=== PATIENT | male | born 1945 | race Caucasian/White ===

== ENCOUNTER 2019-03-12 20:53 | Inpatient (IN) | payer MEDICARE ==
[~2019-03-12] VITALS: Ht 187.9 cm; Wt 70.6 kg
[2019-03-12] MEDS ORDERED: RT-ALBUTEROL/IPRATROPIUM 3 ML (DUONEB) VIAL INH ONE (21:15)
--- NOTE | 2019-03-12 21:15 | ED Dyspnea ---
General Chief Complaint: Respiratory Problems Stated Complaint: SOA,COUGH Source of Information: Patient History of Present Illness Date Seen by Provider: Mar 12, 2019 Time Seen by Provider: 20:57 Initial Comments 73-year-old male presenting with increasing shortness of breath and cough over the last week or 2. In the last couple of days he's had even more shortness of breath and difficulty laying flat. He reports that if his family pounds on his back he did eventually bring up some clear mucus and that would help with his breathing but today that has not been helping. He has had a lot of clear nasal drainage. He feels like he can't get anything up out of his chest. If he sitting straight up or leaning forward helps with his breathing. He is a smoker. He does have a history of hypertension but stopped taking his blood pressure medicine because he was on a very low-dose and felt that he didn't need it anymore. He follows with Dr. Valencia. He has been having some swelling in his feet and legs over the last couple of days. He felt like this was due to having his feet down and not moving around as much. He has had some chills but denies fever. Increased shortness of breath with laying down and with exertion. Allergies and Home Medications Allergies Coded Allergies: No Known Drug Allergies (Unverified , 03/12/19) Patient Home Medication List Home Medication List Reviewed: Yes Review of Systems Review of Systems Constitutional: chills; No diaphoresis, No dizziness, No fever; malaise, weakness (generalized) EENTM: nose congestion (clear nasal drainage); No ear pain, No epistaxis Respiratory: cough, dyspnea on exertion; No hemoptysis; orthopnea, phlegm (clear colored when he is able to get it coughed up), short of breath; No stridor; wheezing Cardiovascular: No chest pain; edema (bilateral feet), palpitations; No syncope Gastrointestinal: No nausea, No vomiting Genitourinary: no symptoms reported Musculoskeletal: back pain Skin: no symptoms reported Psychiatric/Neurological: Weakness (generalized) All Other Systems Reviewed Negative Unless Noted: Yes (Negative excepted noted.) Past Ynrzwhv-Iwtqug-Tfhsyf Hx Past Med/Social Hx: Reviewed Nursing Past Med/Soc Hx Patient Social History Recent Foreign Travel: No Contact w/Someone Who Travel: No Past Medical History Respiratory: Yes Chronic Bronchitis Cardiac: Yes Hypertension Neurological: No Genitourinary: No Gastrointestinal: No Musculoskeletal: No Endocrine: No HEENT: No Physical Exam Vital Signs Vital Signs - First Documented 03/12/19 21:00 Temp 36.3 Pulse 120 Resp 22 B/P (MAP) 168/90 (116) Pulse Ox 95 O2 Delivery Room Air Capillary Refill : Height, Weight, BMI Height: '" Weight: lbs. oz. kg; BMI Method: General Appearance: Moderate Distress (working hard to breath), Thin HEENT: PERRL/EOMI, Pharyngeal Erythema (with some edema from cough, no exudate) Neck: Full Range of Motion, Non Tender, Supple; No Carotid Bruit; JVD Respiratory: Chest Non Tender, Decreased Breath Sounds, Respiratory Distress Cardiovascular: Normal Peripheral Pulses, Tachycardia, Other (1+pitting edema in BLE to just past his ankles) Peripheral Pulses: 2+ Carotid (R), 2+ Carotid (L), 2+ Radial Pulses (R), 2+ Radial Pulses (L) Gastrointestinal: Normal Bowel Sounds, No Pulsatile Mass, Non Tender, Soft Extremity: Normal Capillary Refill, Non Tender, Pedal Edema (BLE 1+ just past his ankles) Neurologic/Psychiatric: Alert, Oriented x3, No Motor/Sensory Deficits, 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 Norm as Tested Skin: Warm/Dry, Pallor Lymphatic: No Adenopathy Progress/Results/Core Measures Results/Orders Lab Results Laboratory Tests Test 03/12/19 21:20 Range/Units White Blood Count 10.2 4.3-11.0 10^3/uL Red Blood Count 4.98 4.35-5.85 10^6/uL Hemoglobin 10.8 L 13.3-17.7 G/DL Hematocrit 36 L 40-54 % Mean Corpuscular Volume 71 L 80-99 FL Mean Corpuscular Hemoglobin 22 L 25-34 PG Mean Corpuscular Hemoglobin Concent 30 L 32-36 G/DL Red Cell Distribution Width 24.4 H 10.0-14.5 % Platelet Count 303 130-400 10^3/uL Mean Platelet Volume 8.7 7.4-10.4 FL Neutrophils (%) (Auto) 61 42-75 % Lymphocytes (%) (Auto) 24 12-44 % Monocytes (%) (Auto) 15 H 0-12 % Eosinophils (%) (Auto) 0 0-10 % Basophils (%) (Auto) 0 0-10 % Neutrophils # (Auto) 6.2 1.8-7.8 X 10^3 Lymphocytes # (Auto) 2.4 1.0-4.0 X 10^3 Monocytes # (Auto) 1.5 H 0.0-1.0 X 10^3 Eosinophils # (Auto) 0.0 0.0-0.3 10^3/uL Basophils # (Auto) 0.0 0.0-0.1 10^3/uL Sodium Level 125 *L 135-145 MMOL/L Potassium Level 4.3 3.6-5.0 MMOL/L Chloride Level 90 L 98-107 MMOL/L Carbon Dioxide Level 21 21-32 MMOL/L Anion Gap 14 5-14 MMOL/L Blood Urea Nitrogen 13 7-18 MG/DL Creatinine 1.02 0.60-1.30 MG/DL Estimat Glomerular Filtration Rate > 60 BUN/Creatinine Ratio 13 Glucose Level 127 H 70-105 MG/DL Calcium Level 9.1 8.5-10.1 MG/DL Corrected Calcium 8.9 8.5-10.1 MG/DL Magnesium Level 1.8 1.6-2.4 MG/DL Total Bilirubin 0.5 0.1-1.0 MG/DL Aspartate Amino Transf (AST/SGOT) 18 5-34 U/L Alanine Aminotransferase (ALT/SGPT) 12 0-55 U/L Alkaline Phosphatase 92 40-136 U/L Troponin I < 0.30 <0.30 NG/ML Pro-B-Type Natriuretic Peptide 6295.0 H <75.0 PG/ML Total Protein 7.1 6.4-8.2 GM/DL Albumin 4.2 3.2-4.5 GM/DL Micro Results Microbiology 03/12/19 Influenza Types A,B Antigen (RADHA) - Final, Complete My Orders Orders - GYPSY LOPEZ MD Cbc With Automated Diff (03/12/19 21:15) Comprehensive Metabolic Panel (03/12/19 21:15) Albuterol/Ipra Inhalation Soln (Duoneb I (03/12/19 21:15) Chest Pa/Lat (2 View) (03/12/19 21:15) Ekg Tracing (03/12/19 21:15) O2 (03/12/19 21:15) Ed Iv/Invasive Line Start (03/12/19 21:15) Sputum Culture (03/12/19 21:15) Monitor-Rhythm Ecg Trace Only (03/12/19 21:15) Svn Small Volume Nebulizer (03/12/19 21:15) Influenza A And B Antigens (03/12/19 21:15) Troponin I Fs (03/12/19 21:17) Probnp Fs (03/12/19 21:17) Magnesium (03/12/19 21:17) Furosemide Injection (Lasix Injection) (03/12/19 22:27) Nicotine Patch (Nicoderm Patch) (03/12/19 22:27) Medications Given in ED Current Medications Medications Dose Ordered Sig/Akira Route Start Time Stop Time Status Last Admin Dose Admin Albuterol/ Ipratropium 3 ml ONCE ONCE INH 03/12/19 21:15 03/12/19 21:18 DC 03/12/19 21:29 3 ML Vital Signs/I&O 03/12/19 21:00 Temp 36.3 Pulse 120 Resp 22 B/P (MAP) 168/90 (116) Pulse Ox 95 O2 Delivery Room Air Progress Progress Note #1: Progress Note Obtain basic labs as well as electrocardiogram and chest x-ray. Try a DuoNeb breathing treatment to see if that helps with his breathing since he is a chronic smoker Progress Note #2: Time: 22:08 Progress Note The electrocardiogram shows sinus tachycardia with PVCs and right bundle-branch block with left anterior fascicular block. There is no prior tracing for comparison. His chest x-ray shows pulmonary edema with bilateral pleural effusions and cardiomegaly. His chemistry shows hyponatremia and elevated BNP but normal troponin. His renal function is normal as well. Discussed with the patient about the results and advised admission for diuresis and cardiology evaluation. Progress Note #3: Time: 22:33 Progress Note Discussed with Dr. Waldrop about the patient for the hospitalist service since patient follows with Dr. Valencia. She did accept the patient but requested an ABG on the patient. She wanted him admitted to the ICU. She did request cardiology to be consult to deny developing a message on the voice mail for Dr. Moreno at [phone]. I gave the patient 40 mg of IV Lasix and he did say he improved with duoneb so use MAT protocol at [facility] as well. Initial ECG Impression Date: Mar 12, 2019 Initial ECG Impression Time: 21:11 Initial ECG Rate: 112 Initial ECG Rhythm: S.Tach Initial ECG Comparisson: No Previous ECG Available Comment Sinus tachycardia with PVCs. Heart rate is 112 bpm. He has a MI interval of 124 ms. There is a lot of artifact on the tracing. He has no prior tracing available for comparison. He has a right bundle-branch LOC and left anterior fascicular block. He has no acute ST elevation. QT interval 353 ms and a QTc interval 482 ms. Diagnostic Imaging Diagonstic Imaging: Xray Plain Films/CT/US/NM/MRI: chest Comments NAME: [facility] REC#: [id number] PT STATUS: REG ER : 1945 PHYSICIAN: GYPSY LOPEZ MD ADMIT DATE: 03/12/19/ER FS Draft Date of Exam:03/12/19 CHEST PA/LAT (2 VIEW) CHEST PA/LAT (2 VIEW) Indication: Shortness of breath Comparison: None available. Findings: Interlobular septal thickening is present in the mid and lower lung zones. Small bilateral pleural effusions. No pneumothorax. Cardiomegaly. Atherosclerotic aorta. Impression: 1. Imaging features suggest congestive heart failure with interstitial pulmonary edema and small bilateral pleural effusions. Dictated on workstation # [id number] Dict: 03/12/192137 Trans: 03/12/19 2143 AAKASH [id number] Interpreted by: JOE PIMENTEL MD Electronically signed by: Critical Care Note Critical Care Total Time (minutes) 45 Progress 45 minutes of critical care time was spent directly caring for the patient. This time excluding separately billable procedures. Time was spent in obtaining history from the patient and family, ordering tests and reviewing results, ordering interventions and reviewing response, discussion with consultants, reviewing results with the patient and family, documentation of the chart. Patient was at significant risk of decompensation and organ system failure from cardiac and pulmonary systems due to his acute heart failure and pulmonary edema, requiring my direct attention to care for the patient in order to prevent imminent decompensation, morbidity or mortality. Departure Communication (Admissions) Time/Spoke to Admitting Phy: 22:[address] Waldrop about hospitalist admission of the patient. She requested ICU admission as well as an ABG on the patient. She also wanted cardiology consult tonight so that they were aware of the patient. If cardiology wanted any additional treatment or testing then also initiate that tonight. Time/Spoke to Consulting Phy: 22:[address] Moreno about the consult. He did call back prior to the patient being transferred to [facility]. He requested that the patient have an echocardiogram ordered for the morning and order serial troponins overnight. Impression Primary Impression: Acute CHF (congestive heart failure) Qualified Codes: I50.9 - Heart failure, unspecified Additional Impressions: Shortness of breath Hyponatremia Disposition: ADMITTED INPATIENT Condition: Stable Admissions Decision to Admit Reason: Admit from ER (General) Decision to Admit/Date: Mar 12, 2019 Time/Decision to Admit Time: 22:33 Departure-Patient Inst. Referrals: ARNOL VALENCIA MD (PCP/Family) Primary Care Physician GYPSY LOPEZ MD Mar 12, 2019 21:15
[2019-03-12 21:32] LABS: HEMATOCRIT 36 % (40-54); HEMOGLOBIN 10.8 G/DL (13.3-17.7); MEAN CORPUSCULAR HEMOGLOBIN 22 PG (25-34); MEAN CORPUSCULAR VOLUME 71 FL (80-99); WHITE BLOOD COUNT 10.2 10^3/uL (4.3-11.0)
[2019-03-12 21:33] LABS: BASOPHILS % (AUTO) 0 % (0-10); EOSINOPHILS % (AUTO) 0 % (0-10); LYMPHOCYTES # (AUTO) 2.4 X 10^3 (1.0-4.0); LYMPHOCYTES % (AUTO) 24 % (12-44); MEAN CORPUSCULAR HGB CONC 30 G/DL (32-36); MEAN PLATELET VOLUME 8.7 FL (7.4-10.4); MONOCYTES # (AUTO) 1.5 X 10^3 (0.0-1.0); MONOCYTES % (AUTO) 15 % (0-12); NEUTROPHILS # (AUTO) 6.2 X 10^3 (1.8-7.8); NEUTROPHILS % (AUTO) 61 % (42-75); PLATELET COUNT 303 10^3/uL (130-400); RED CELL DISTRIBUTION WIDTH 24.4 % (10.0-14.5)
--- NOTE | 2019-03-12 21:43 | Diagnostic Imaging Report ---
CHEST PA/LAT (2 VIEW) Indication: Shortness of breath Comparison: None available. Findings: Interlobular septal thickening is present in the mid and lower lung zones. Small bilateral pleural effusions. No pneumothorax. Cardiomegaly. Atherosclerotic aorta. Impression: 1. Imaging features suggest congestive heart failure with interstitial pulmonary edema and small bilateral pleural effusions. Dictated by: Dictated on workstation # [id number]
[2019-03-12 22:06] LABS: ALANINE AMINOTRANSFERASE 12 U/L (0-55); ALKALINE PHOSPHATASE 92 U/L (40-136); BILIRUBIN,TOTAL 0.5 MG/DL (0.1-1.0); BUN/CREATININE RATIO 13; CALCIUM 9.1 MG/DL (8.5-10.1); CARBON DIOXIDE 21 MMOL/L (21-32); CHLORIDE 90 MMOL/L (98-107); CREATININE SERUM 1.02 MG/DL (0.60-1.30); GFR ESTIMATED > 60; GLUCOSE 127 MG/DL (70-105); POTASSIUM 4.3 MMOL/L (3.6-5.0); SODIUM 125 MMOL/L (135-145)
[2019-03-12 22:07] LABS: ALBUMIN 4.2 GM/DL (3.2-4.5); MAGNESIUM 1.8 MG/DL (1.6-2.4); TOTAL PROTEIN 7.1 GM/DL (6.4-8.2)
[2019-03-12] MEDS ORDERED: FUROSEMIDE 40 MG/4 ML INJ (LASIX) IVP STA (22:27)
[2019-03-12] MEDS ORDERED: NICOTINE 21 MG (NICODERM) PATCH TD STA (22:27)
[2019-03-12 22:51] LABS: ABG BASE EXCESS 1.4 MMOL/L (-2.5-2.5); ABG OXYGEN SATURATION 95 % (94-100); ABG PCO2 34 MMHG (35-45); ABG PH 7.47 (7.37-7.43); ABG PO2 70 MMHG (79-93); ABG TCO2 25.7 MMOL/L (21.0-31.0); ALLENS TEST YES-POS; INSPIRED O2 ROOM AIR; PATIENT TEMP 36.9; VENTILATOR NO
[2019-03-13] VITALS (20 sets, daily range): BP systolic 122–168; BP diastolic 74–96
[2019-03-13 01:25] LABS: BASOPHILS % (AUTO) 0 % (0-10); EOSINOPHILS % (AUTO) 0 % (0-10); HEMATOCRIT 36 % (40-54); HEMOGLOBIN 11.3 G/DL (13.3-17.7); LYMPHOCYTES # (AUTO) 2.2 X 10^3 (1.0-4.0); LYMPHOCYTES % (AUTO) 23 % (12-44); MEAN CORPUSCULAR HEMOGLOBIN 21 PG (25-34); MEAN CORPUSCULAR HGB CONC 31 G/DL (32-36); MEAN CORPUSCULAR VOLUME 69 FL (80-99); MEAN PLATELET VOLUME 8.6 FL (7.4-10.4); MONOCYTES # (AUTO) 1.8 X 10^3 (0.0-1.0); MONOCYTES % (AUTO) 19 % (0-12); NEUTROPHILS # (AUTO) 5.6 X 10^3 (1.8-7.8); NEUTROPHILS % (AUTO) 58 % (42-75); PLATELET COUNT 323 10^3/uL (130-400); RED CELL DISTRIBUTION WIDTH 24.6 % (10.0-14.5); WHITE BLOOD COUNT 9.6 10^3/uL (4.3-11.0)
[2019-03-13 01:51] LABS: ALBUMIN 4.2 GM/DL (3.2-4.5); BILIRUBIN,TOTAL 0.7 MG/DL (0.1-1.0); CALCIUM 9.3 MG/DL (8.5-10.1); CREATININE SERUM 1.2 MG/DL (0.60-1.30); MAGNESIUM 1.8 MG/DL (1.6-2.4); PHOSPHORUS 3.5 MG/DL (2.3-4.7); POTASSIUM 3.8 MMOL/L (3.6-5.0); TOTAL PROTEIN 7.7 GM/DL (6.4-8.2)
[2019-03-13] MEDS ORDERED: RT-ALBUTEROL/IPRATROPIUM 3 ML (DUONEB) VIAL INH PRN (02:45)
[2019-03-13] MEDS ORDERED: RT-ALBUTEROL/IPRATROPIUM 3 ML (DUONEB) VIAL INH SCH (03:00)
[2019-03-13 03:54] LABS: LYMPHOCYTES % (MANUAL) 22 %; MONOCYTES % (MANUAL) 15 %; NEUTROPHILS % (MANUAL) 63 %
[2019-03-13] MEDS: POTASSIUM CL 10MEQ/50ML IVPB 50 ML IV SCH (04:54)
[2019-03-13] MEDS: KCL 20 MEQ TAB (K-DUR) PO SCH ×3 (04:54→20:10)
[2019-03-13] MEDS: MAGNESIUM 1 GM/100 ML IVPB 100 ML IV SCH (04:54)
--- NOTE | 2019-03-13 05:39 | Pulmonary Consultation ---
History of Present Illness History of Present Illness Date Seen by Provider: Mar 13, 2019 Time Seen by Provider: 05:38 Date of Admission History of Present Illness 73yo with hx of extensive tobacco use presented to ED secondary to worsening SOB, bilateral LE edema, and cough over the last 2wks. SOB is worse with exertion and laying flat. No prior episodes like this. PT was dx with acute CHF and was given lasix then admitted to ICU. Allergies and Home Medications Allergies Coded Allergies: No Known Drug Allergies (Unverified , 03/12/19) Past Wdgrkyy-Ozmxow-Jvvikb Hx Past Med/Social Hx: Reviewed Nursing Past Med/Soc Hx Patient Social History Alcohol Use: Rarely Uses Recreational Drug Use: No Smoking Status: Current Everyday Smoker Type Used: Cigarettes 2nd Hand Smoke Exposure: No Recent Foreign Travel: No Contact w/Someone Who Travel: No Recent Infectious Disease Expo: No Recent Hopitalizations: No Physical Abuse: No Sexual Abuse: No Mistreated: No Past Medical History Surgeries: No Respiratory: Yes Chronic Bronchitis Cardiac: Yes Hypertension Neurological: No Genitourinary: No Gastrointestinal: No Musculoskeletal: No Endocrine: No HEENT: No Cancer: No Psychosocial: No Integumentary: No Blood Disorders: No Review of Systems Time Seen by Provider: 07:20 Constitutional: Chills; No: Fever, Sweats, Weakness, Malaise, Other Eyes: No: Pain, Vision change, Conjunctivae inflammation, Eyelid inflammation, Other, Redness ENT: Nose congestion; No: Ear pain, Ear discharge, Nose pain, Nose discharge, Mouth pain, Mouth swelling, Throat pain, Throat swelling, Other Respiratory: Cough, Shortness of breath, SOB with excertion, Wheezing, Sputum; No: Dry, Hemoptysis, Pleuritic Pain, Other Cardiovascular: Palpitations, Orthopnea, Paroxysmal Noc. Dyspnea, Edema, Lt Headedness; No: Chest Pain Sepsis Event Evaluation Height, Weight, BMI Height: '" Weight: lbs. oz. kg; 21.75 BMI Method: Exam Exam Vital Signs Date Time Temp Pulse Resp B/P (MAP) Pulse Ox O2 Delivery O2 Flow Rate FiO2 03/13/19 04:00 Room Air 03/13/19 04:00 104 19 132/77 (95) 95 Room Air 03/13/19 03:55 36.4 03/13/19 03:00 109 23 140/88 (105) 95 Room Air 03/13/19 02:30 105 94 21 03/13/19 02:15 112 27 136/85 (102) 95 Room Air 03/13/19 01:45 105 20 144/83 (103) 96 Room Air 03/13/19 01:15 102 21 135/84 (101) 96 Room Air 03/13/19 01:00 109 19 145/77 (99) 96 Room Air 03/13/19 00:45 111 12 145/91 (109) 95 Room Air 03/13/19 00:30 94 Room Air 03/13/19 00:21 120 03/13/19 00:21 36.6 112 18 147/78 (101) 94 Room Air 94.00 03/12/19 23:08 123 20 164/61 95 Room Air 03/12/19 21:00 36.3 120 22 168/90 (116) 95 Room Air I & O 03/13/19 07:00 Intake Total 50 ml Output Total 1850 ml Balance -1800 ml Height & Weight Height: '" Weight: lbs. oz. kg; 21.75 BMI Method: General Appearance: Anxious, Chronically ill, Mild Distress, Thin HEENT: PERRL/EOMI, Pharyngeal Erythema (with some edema from cough, no exudate) Neck: Full Range of Motion, Non Tender, Supple; No Carotid Bruit; JVD Respiratory: Chest Non Tender, Decreased Breath Sounds, Respiratory Distress Cardiovascular: Normal Peripheral Pulses, Tachycardia, Other (1+pitting edema in BLE to just past his ankles) Capillary Refill: Less Than 3 Seconds Peripheral Pulses: 2+ Carotid (R), 2+ Carotid (L), 2+ Radial Pulses (R), 2+ Radial Pulses (L) Extremity: Normal Capillary Refill, Non Tender, Pedal Edema (BLE 1+ just past his ankles) Neurologic/Psychiatric: Alert, Oriented x3, No Motor/Sensory Deficits, 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
[2019-03-13] MEDS ORDERED: ENOXAPARIN 40 MG/0.4 ML (LOVENOX) SYR ONE (06:04)
[2019-03-13] MEDS ORDERED: ENOXAPARIN 40 MG/0.4 ML (LOVENOX) SYR SC SCH ×2 (06:15→12:00)
[2019-03-13] MEDS: FUROSEMIDE 40 MG/4 ML INJ (LASIX) IV SCH ×2 (08:02→20:10)
--- NOTE | 2019-03-13 08:38 | Diagnostic Imaging Report ---
INDICATION: Congestive heart failure, hyponatremia. TECHNIQUE: Single view chest 3:30 AM. CORRELATION STUDY: 03/12/2019 FINDINGS: Heart size is stable. Component of mild vascular congestion. Calcification of the aortic arch. Small bilateral pleural effusions. Some areas of atelectasis about the lung bases. Lung snow, however, overall appear somewhat improved in aeration. IMPRESSION: 1. Findings of congestive heart failure overall perhaps slightly diminished. Bilateral pleural effusions persisting. Dictated by: Dictated on workstation # [id number]
[2019-03-13] MEDS ORDERED: ASPI325T32 PO (09:40)
[2019-03-13] MEDS ORDERED: NAPR220T66 PO (09:40)
[2019-03-13] MEDS: RT-ALBUTEROL/IPRATROPIUM 3 ML (DUONEB) VIAL INH SCH ×3 (09:49→18:49)
[2019-03-13] MEDS ORDERED: GOLYTELY POWDER 4000 ML BTL PO NR (11:48)
--- NOTE | 2019-03-13 11:54 | Consultation - Surgery ---
BRIAN COWAN,MED STUDENT 03/13/19 1154: History of Present Illness History of Present Illness Patient Consulted On(bi/time) 03/13/19 11:44 Date Seen by Provider: Mar 13, 2019 Time Seen by Provider: 11:30 History of Present Illness Surgery consult by Dr. Sharif for EGD/colonoscopy to investigate cause of patient's microcytic anemia Patient is a 73 y/o male that presented to the ED in [place] yesterday with worsening SOB and cough that started around . SOB and cough had worsened of the last week. He was initially SOB with exertion and that progressed to SOB at rest with it being worse when he laid flat on his back. His cough has been productive sometimes with clear phlegm. He also admits to clear nasal drainage that has come and gone since . Patient says that sitting straight and leaning forward helps his breathing. Patient admits to smoking for 1.5ppd for 56yrs. Patient says that Dr. Gama is his doctor but that he never really sees Dr. Gama be he is skeptical of doctors and hospitals. Susan nt says that he has HTN but does not take his lisinopril regularly. He says that he came into the hospital because of his SOB and swelling in his feet, legs and back. Allergies and Home Medications Allergies Coded Allergies: Dxyrdth-Ddk-Zvx Reductase Inhibitor (Verified Allergy, Severe, myopathy , 03/13/19) Home Medications Aspirin 325 Mg Tablet.dr, 325 MG PO 1200, (Reported) Naproxen Sodium 220 Mg Tablet, 440 MG PO BID, (Reported) Past Hkidriq-Pksbba-Gnessv Hx Patient Social History Alcohol Use: Rarely Uses Recreational Drug Use: No Smoking Status: Current Everyday Smoker (1.5ppd for 56yrs ) Type Used: Cigarettes 2nd Hand Smoke Exposure: No Recent Foreign Travel: No Contact w/Someone Who Travel: No Recent Infectious Disease Expo: No Recent Hopitalizations: No Surgeries History of Surgeries: Yes Surgeries: Eye Surgery (cataracts ), Tonsillectomy Respiratory History of Respiratory Disorde: Yes Respiratory Disorders: Chronic Bronchitis Cardiovascular History of Cardiac Disorders: Yes Cardiac Disorders: Hypertension Neurological History of Neurological Disord: No Genitourinary History of Genitourinary Disor: No Gastrointestinal History of Gastrointestinal Di: No Musculoskeletal History of Musculoskeletal Dis: No Endocrine History of Endocrine Disorders: No HEENT History of HEENT Disorders: No Cancer History of Cancer: No Psychosocial History of Psychiatric Problem: No Integumentary History of Skin or Integumenta: No Blood Transfusions History of Blood Disorders: No Family Medical History Significant Family History: No Pertinent Family Hx Review of Systems-General Constitutional: No chills, No diaphoresis, No dizziness, No fever; malaise, weakness EENTM: nose congestion; No nose pain, No throat pain, No throat swelling Respiratory: cough, dyspnea on exertion; No hemoptysis; phlegm, short of breath Cardiovascular: No chest pain; edema; No Hx of Intervention, No palpitations Gastrointestinal: No abdominal pain, No constipation, No diarrhea, No melena, No nausea, No vomiting Genitourinary: No decreased output, No discharge, No dysuria, No frequency, No incontinence Musculoskeletal: back pain Psychiatric/Neurological: Anxiety, Depressed Physical Exam-General Problems Physical Exam Vital Signs Vital Signs - First Documented 03/12/19 03/13/19 21:00 02:30 Temp 36.3 Pulse 120 Resp 22 B/P (MAP) 168/90 (116) Pulse Ox 95 O2 Delivery Room Air FiO2 21 Capillary Refill : Less Than 3 Seconds General Appearance: WD/WN, no apparent distress HEENT: PERRL/EOMI; No scleral icterus (R), No scleral icterus (L) Neck: non-tender, supple Respiratory: chest non-tender, no respiratory distress, no accessory muscle use, decreased breath sounds Cardiovascular: tachycardia, other (regular rhythm ) Peripheral Pulses: 2+ Dorsalis Pedis (R), 2+ Left Dors-Pedis (L), 2+ Radial Pulses (R), 2+ Radial Pulses (L) Gastrointestinal: non tender, soft, no organomegaly, no pulsatile mass Extremities: no calf tenderness, pedal edema (minimal ) Neurologic/Psychiatric: alert, normal mood/affect, oriented x 3 Skin: normal color, warm/dry Data Review Labs Laboratory Tests 03/12/19 21:20: White Blood Count 10.2, Red Blood Count 4.98, Hemoglobin 10.8L, Hematocrit 36L, Mean Corpuscular Volume 71L, Mean Corpuscular Hemoglobin 22L, Mean Corpuscular Hemoglobin Concent 30L, Red Cell Distribution Width 24.4H, Platelet Count 303, Mean Platelet Volume 8.7, Neutrophils (%) (Auto) 61, Lymphocytes (%) (Auto) 24, Monocytes (%) (Auto) 15H, Eosinophils (%) (Auto) 0, Basophils (%) (Auto) 0, Neutrophils # (Auto) 6.2, Lymphocytes # (Auto) 2.4, Monocytes # (Auto) 1.5H, Eosinophils # (Auto) 0.0, Basophils # (Auto) 0.0, Sodium Level 125*L, Potassium Level 4.3, Chloride Level 90L, Carbon Dioxide Level 21, Anion Gap 14, Blood Urea Nitrogen 13, Creatinine 1.02, Estimat Glomerular Filtration Rate > 60, BUN/Creatinine Ratio 13, Glucose Level 127H, Calcium Level 9.1, Corrected Calcium 8.9, Magnesium Level 1.8, Total Bilirubin 0.5, Aspartate Amino Transf (AST/SGOT) 18, Alanine Aminotransferase (ALT/SGPT) 12, Alkaline Phosphatase 92, Troponin I < 0.30, Pro-B-Type Natriuretic Peptide 6295.0H, Total Protein 7.1, Albumin 4.2 03/12/19 22:46: Blood Gas Puncture Site RT RAD, Blood Gas Patient Temperature 36.9, Arterial Blood pH 7.47H, Arterial Blood Partial Pressure CO2 34L, Arterial Blood Partial Pressure O2 70L, Arterial Blood HCO3 25, Arterial Blood Total CO2 25.7, Arterial Blood Oxygen Saturation 95, Arterial Blood Base Excess 1.4, Patrick Test YES-POS, Blood Gas Ventilator Setting NO, Blood Gas Inspired Oxygen ROOM AIR 03/13/19 01:10: White Blood Count 9.6, Red Blood Count 5.30, Hemoglobin 11.3L, Hematocrit 36L, Mean Corpuscular Volume 69L, Mean Corpuscular Hemoglobin 21L, Mean Corpuscular Hemoglobin Concent 31L, Red Cell Distribution Width 24.6H, Platelet Count 323, Mean Platelet Volume 8.6, Neutrophils (%) (Auto) 58, Lymphocytes (%) (Auto) 23, Monocytes (%) (Auto) 19H, Eosinophils (%) (Auto) 0, Basophils (%) (Auto) 0, Neutrophils # (Auto) 5.6, Lymphocytes # (Auto) 2.2, Monocytes # (Auto) 1.8H, Eosinophils # (Auto) 0.0, Basophils # (Auto) 0.0, Sodium Level 127L, Potassium Level 3.8, Chloride Level 91L, Carbon Dioxide Level 23, Anion Gap 13, Blood Urea Nitrogen 12, Creatinine 1.20, Estimat Glomerular Filtration Rate 59, BUN/Creatinine Ratio 10, Glucose Level 104, Calcium Level 9.3, Corrected Calcium 9.1, Magnesium Level 1.8, Total Bilirubin 0.7, Aspartate Amino Transf (AST/SGOT) 17, Alanine Aminotransferase (ALT/SGPT) 14, Alkaline Phosphatase 93, Troponin I 0.029H, Total Protein 7.7, Albumin 4.2, Neutrophils % (Manual) 63, Lymphocytes % (Manual) 22, Monocytes % (Manual) 15, Phosphorus Level 3.5 03/13/19 04:50: Troponin I 0.030H, B-Type Natriuretic Peptide 984.4H Microbiology 03/12/19 Influenza Types A,B Antigen (RADHA) - Final, Complete Assessment/Plan Assessment/Plan Assessment/Plan Microcytic anemia - hgb is improving but iron is still low New onset CHFAE - cardiology is following incentive spirometry EGD and colonoscopy planned for tomorrow. Make patient NPO at midnight and do bowel prep today. Clinical Quality Measures DVT/VTE Risk/Contraindication: Risk Factor Score Per Nursin RFS Level Per Nursing on Admit: 4+=Very High PIA JOE DO 03/13/192102: History of Present Illness History of Present Illness History of Present Illness Patient is a 73 year old male who had worsening shortness of breath. was found to have micocytic anemia. cardiology has requested egd/colonoscopy be done. Has never had egd/colonoscopy previously. Undergoing cardiac workup but since microcytic anemia wanted GI workup in cased needs to be anticoagulated. Patient breathing better today. Has not had bowel issues. Does take Naproxen for back pain on regular basis. Denies n/v fever sweats chills. Allergies and Home Medications Allergies Coded Allergies: Shbhwte-Dcq-Nsx Reductase Inhibitor (Verified Allergy, Severe, myopathy , 03/13/19) Home Medications Aspirin 325 Mg Tablet.dr, 325 MG PO 1200, (Reported) Naproxen Sodium 220 Mg Tablet, 440 MG PO BID, (Reported) Patient Home Medication List Home Medication List Reviewed: Yes Past Rpsudap-Jhrbjo-Cglxya Hx Patient Social History Smoking Status: Current Everyday Smoker (1.5ppd for 56yrs ) Surgeries History of Surgeries: Yes Surgeries: Eye Surgery (cataracts ), Tonsillectomy Cardiovascular Cardiac Disorders: Hypertension Reviewed Nursing Assessment Reviewed/Agree w Nursing PMH: Yes Family Medical History Significant Family History: No Pertinent Family Hx Review of Systems-General Constitutional: No chills, No diaphoresis, No dizziness, No fever; malaise, weakness EENTM: nose congestion; No nose pain, No throat pain, No throat swelling Respiratory: cough, dyspnea on exertion; No hemoptysis; phlegm, short of breath Cardiovascular: edema; No Hx of Intervention, No palpitations Gastrointestinal: No abdominal pain, No constipation, No diarrhea, No melena, No nausea, No vomiting Genitourinary: No decreased output, No discharge, No dysuria, No frequency, No incontinence Musculoskeletal: back pain Skin: no symptoms reported; No change in color, No change in hair/nails Psychiatric/Neurological: Anxiety, Depressed Physical Exam-General Problems Physical Exam General Appearance: WD/WN, no apparent distress HEENT: PERRL/EOMI; No scleral icterus (R), No scleral icterus (L) Neck: non-tender, supple, normal inspection Respiratory: chest non-tender, no respiratory distress, no accessory muscle use Cardiovascular: tachycardia, other (regular rhythm ) Gastrointestinal: non tender, soft, no organomegaly, no pulsatile mass Rectal: deferred Back: normal inspection, other (low back chronic pain tenderness) Extremities: no calf tenderness, pedal edema (minimal ) Neurologic/Psychiatric: alert, normal mood/affect, oriented x 3 Skin: normal color, warm/dry Lymphatic: no adenopathy Assessment/Plan Assessment/Plan Assessment/Plan microcytic anemia hgb up CHFAE asked to do EGD/Colonoscopy to rule out GI malignancy discussed risks and benefits of EGD/Colonoscopy and patient/family understand and wish for him to proceed. patient to do prep today clear liquids npo after midnight plan on procedures tomorrow. Supervisory-Addendum Brief Verification & Attestation Participated in pt care: history, MDM, physical Personally performed: exam, history, MDM, supervision of care Care discussed with: Medical Student Procedures: n/a Results interpretation: Verified all documentation Verification and Attestation of Medical Student E/M Service A medical student performed and documented this service in my presence. I reviewed and verified all information documented by the medical student and made modifications to such information, when appropriate. I personally performed the physical exam and medical decision making. Pia Joe, Mar 13, 2019,21:06 BRIAN COWAN,MED STUDENT Mar 13, 2019 11:54 PIA JOE DO Mar 13, 2019 21:03
[2019-03-13] MEDS ORDERED: ONDANSETRON 4 MG/2 ML (SDV) Z0FRAN IV PRN (12:00)
[2019-03-13] MEDS ORDERED: POLYETHYLENE GLYCOL 17 GM (MIRALAX) PACK PO PRN (12:00)
[2019-03-13] MEDS ORDERED: BISACODYL 10 MG SUPP (DULCOLAX) PR PRN (12:00)
[2019-03-13] MEDS ORDERED: ANTACID SUSP 30 ML UDC (MYLANTA) PO PRN (12:00)
[2019-03-13] MEDS ORDERED: MELATONIN 3 MG TABLET PO PRN (12:00)
[2019-03-13] MEDS ORDERED: ONDANSETRON 4 MG (ZOFRAN) ORAL DISSOLVE TAB PO PRN (12:00)
[2019-03-13] MEDS: ACETAMINOPHEN 325 MG TABLET PO PRN ×2 (12:19→20:10)
--- NOTE | 2019-03-13 14:42 | History & Physical-Hospitalist ---
History of Present Illness HPI/Chief Complaint Ambrosio Templeton is a 73-year-old male with past medical history of hypertension, hyperlipidemia, who presented with shortness of breath. He reports that the shortness of breath has been going on for some time. He reports having worsening shortness of breath with laying flat. He reports swelling in his lower extremities. He denies any fevers or chills. He denies any chest pain or palpitations. He denies abdominal pain, nausea, vomiting, or diarrhea. He has a current pack-a-day smoker. He is not currently being followed by a physician. He does not take any prescribed medications regularly. He has been taking Aleve 1000 mg daily. He denies any hematochezia or melena. Date Seen 03/13/19 Time Seen by a Provider: 09:10 Attending Physician An Waldrop John M MD Referring Physician Date of Admission Mar 12, 2019 at 22:33 Home Medications & Allergies Home Medications Reviewed patient Home Medication Reconciliation performed by pharmacy medication reconciliations donor center technician and/or nursing. Patients Allergies have been reviewed. Allergies Allergies Coded Allergies Xbougxl-Mon-Hkf Reductase Inhibitor (Verified Allergy, Severe, myopathy , 03/13/19) Past Vyxqihx-Zmqizc-Yhrhkx Hx Past Med/Social Hx: Reviewed Nursing Past Med/Soc Hx Patient Social History Alcohol Use: Rarely Uses Recreational Drug Use: No Smoking Status: Current Everyday Smoker (1.5ppd for 56yrs ) Type Used: Cigarettes 2nd Hand Smoke Exposure: No Recent Foreign Travel: No Contact w/other who traveled: No Recent Hopitalizations: No Recent Infectious Disease Expo: No Past Medical History Surgeries: Eye Surgery (cataracts ), Tonsillectomy Cardiac: Hypertension History of Blood Disorders: No Family History No Pertinent Family Hx Review of Systems Constitutional: no symptoms reported EENTM: no symptoms reported Respiratory: orthopnea, short of breath Cardiovascular: no symptoms reported Gastrointestinal: no symptoms reported Genitourinary: no symptoms reported Musculoskeletal: no symptoms reported Skin: no symptoms reported Psychiatric/Neurological: No Symptoms Reported Physical Exam Physical Exam Vital Signs Vital Signs - First Documented 03/12/19 03/13/19 21:00 02:30 Temp 36.3 Pulse 120 Resp 22 B/P (MAP) 168/90 (116) Pulse Ox 95 O2 Delivery Room Air FiO2 21 Capillary Refill : Less Than 3 Seconds Height, Weight, BMI Height: '" Weight: lbs. oz. kg; 21.75 BMI Method: General Appearance: No Apparent Distress, WD/WN HEENT: PERRL/EOMI, Pharynx Normal Neck: Normal Inspection, Supple Respiratory: Lungs Clear, Normal Breath Sounds, No Respiratory Distress Cardiovascular: Regular Rate, Rhythm, No Edema, No Murmur Gastrointestinal: Normal Bowel Sounds, Non Tender, Soft Extremity: Normal Inspection, Non Tender, Pedal Edema Neurologic/Psychiatric: Alert, Oriented x3, No Motor/Sensory Deficits, Normal Mood/Affect Skin: Normal Color, Warm/Dry Results Results/Procedures Labs Laboratory Tests 03/12/19 21:20 03/13/19 01:10 Patient resulted labs reviewed. Imaging: Reviewed Imaging Report Assessment/Plan Admission Diagnosis Acute congestive heart failure, unspecified type Admission Status: Inpatient Order (span 2 midnights) Reason for Inpatient Admission: New onset heart failure requiring further evaluation Assessment and Plan Acute congestive heart failure, unspecified type NSTEMI Symptoms consistent with heart failure BNP elevated greater than 6000 on arrival Chest x-ray consistent with pulmonary edema and small bilateral pleural ef fusions Troponin mildly elevated upon arrival Cardiology consulted, assistance appreciated Started on IV Lasix, continue Trend troponin levels Monitor I/O Echocardiogram ordered Planning for ischemic evaluation following endoscopies Hyponatremia Clinically euvolemic to hypervolemic Secondary to heart failure versus SIADH Sodium 125 on arrival, repeat 127 Continue Lasix and assess response Obtain urine studies Possible COPD Nicotine dependence, uncomplicated, cigarettes Continue steroids MAT protocol Pulmonology consulted, appreciate assistance Iron deficiency anemia Mild anemia upon arrival MCV 70 Iron studies indicative of iron deficiency No previous colonoscopies Chronic NSAID use Consult general surgery, appreciate his assistance Planning for EGD/colonoscopy tomorrow, prep today DVT prophylaxis: Lovenox Diagnosis/Problems Diagnosis/Problems (1) Acute CHF (congestive heart failure) Status: Acute Qualifiers: Heart failure type: unspecified Qualified Codes: I50.9 - Heart failure, unspecified (2) NSTEMI (non-ST elevation myocardial infarction) Status: Acute (3) Hyponatremia Status: Acute (4) Iron deficiency anemia Status: Chronic Qualifiers: Iron deficiency anemia type: unspecified iron deficiency Qualified Codes: D50.9 - Iron deficiency anemia, unspecified (5) Nicotine dependence, cigarettes, uncomplicated Status: Chronic Clinical Quality Measures DVT/VTE Risk/Contraindication: Risk Factor Score Per Nursin RFS Level Per Nursing on Admit: 4+=Very High SAMANTHA TRISTAN MD Mar 13, 2019 14:42
--- NOTE | 2019-03-13 17:06 | Consultation-Cardiology ---
HPI-Cardiology Cardiology Consultation: Date of Consultation 03/13/19 Date of Admission Attending Physician An Waldrop DO Admitting Physician Davidson Gama MD Consulting Physician Carlitos MORENO MD HPI: Time Seen by a Provider: 08:30 Chief Complaint: Shortness of breath This is a 73-year-old gentleman who does not follow-up with any physicians. He has history of hypertension and hyperlipidemia. He also has active smoking history. He presents with worsening shortness of breath for the last few weeks. Orthopnea. Lower extremity swelling. Patient denies any significant chest pain, palpitation, syncope or near syncope. He denies any other complaints. Denies any significant family history. He denies any active bleeding from anywhere. He is on daily NSAIDs. His family is [place] origin and there is no history of thalassemia in the family. Review of Systems-Cardiology Review of Systems Constitutional: As described under HPI; No As described under HPI, No no symptoms reported, No chills, No fever, No lightheadedness Eyes: No As described under HPI, No no symptoms reported, No blindness, No blurred vision, No contact lenses, No drainage, No decreased acuity, No foreign body sensation, No pain, No vision change Ears/Nose/Throat: No As described under HPI, No no symptoms reported, No chronic hearing loss, No ear discharge, No ear pain, No nasal drainage, No ulcerations Respiratory: No no symptoms reported; As described under HPI; No As described under HPI, No cough; orthopnea; No shortness of breath, No SOB with excertion Cardiovascular: No no symptoms reported; As described under HPI; No As described under HPI, No chest pain, No edema, No irregular heart rate, No lightheadedness, No palpitations Gastrointestinal: No no symptoms reported, No As described under HPI, No abdomen distended, No abdominal pain, No blood streaked bowels, No constipation, No diarrhea, No nausea, No vomiting, No stool coloration changes Genitourinary: No As described under HPI, No burning, No dysuria, No discharge, No frequency, No flank pain, No hematuria, No urgency Skin: No rash, No skin related problems, No ulcerations Psychiatric/Neurological: No anxiety, No depression, No seizure, No focal weakness, No syncope Hematologic: No bleeding abnormalities All Other Systems Reviewed Negative Unless Noted: Yes (Negative excepted noted.) UMU-[id number]-[id number] Hx Patient Social History Alcohol Use: Rarely Uses Recreational Drug Use: No Smoking Status: Current Everyday Smoker (1.5ppd for 56yrs ) Type Used: Cigarettes 2nd Hand Smoke Exposure: No Recent Foreign Travel: No Recent Infectious Disease Expo: No Past Medical History PMH As described under Assessment. Allergies and Home Medications Allergies Coded Allergies: Zzeorbd-Lxa-Isu Reductase Inhibitor (Verified Allergy, Severe, myopathy , 03/13/19) Home Medications Aspirin 325 Mg Tablet.dr, 325 MG PO 1200, (Reported) Naproxen Sodium 220 Mg Tablet, 440 MG PO BID, (Reported) Patient Home Medication List Home Medication List Reviewed: Yes Physical Exam-Cardiology Physical Exam Vital Signs/I&O 03/13/19 03/13/19 03/13/19 03/13/19 06:00 06:45 07:00 08:00 Temp 37.0 Pulse 103 108 109 Resp 12 16 B/P (MAP) 130/84 (99) 137/80 (99) Pulse Ox 94 95 O2 Delivery Room Air Room Air 03/13/19 03/13/19 03/13/19 03/13/19 08:00 08:00 08:15 09:00 Temp 36.3 Pulse 112 120 112 Resp 19 16 B/P (MAP) 139/86 (103) 132/96 (108) Pulse Ox 96 94 95 O2 Delivery Room Air Room Air Room Air FiO2 21 03/13/19 03/13/19 03/13/19 03/13/19 09:49 10:00 12:00 12:00 Pulse 114 112 Resp 23 24 B/P (MAP) 164/94 (117) 126/93 (104) Pulse Ox 95 96 92 O2 Delivery Room Air Room Air Room Air Room Air 03/13/19 03/13/19 03/13/19 03/13/19 12:00 12:41 13:45 16:00 Temp 37.0 36.6 Pulse 110 Pulse Ox 95 O2 Delivery Room Air 03/13/19 16:00 Pulse 104 Resp 19 B/P (MAP) 129/82 (98) Pulse Ox 93 O2 Delivery Room Air Capillary Refill : Less Than 3 Seconds Constitutional: appears stated age, AAO x 3; No apparent distress; well- developed, well-nourished HEENT: PERRL; No discharge; hearing is well preserved, oral hygience is good; No ulceration, No xanthelasmas are seen Neck: No carotid bruit; carotid pulses are 2 + bilaterally Respiratory: accessory muscle use, chest is bilaterally symmetric, other (course breath sounds bilaterally) Cardiovascular: regular rate-rhythm, tachycardia, S1 and S2 Gastrointestinal: soft, audible bowel sounds; No spleenomegaly Rectal: deferred Extremities: normal range of motion, non-tender, normal inspection, pedal edema; No clubbing, No cyanosis, No significant edema Neurologic/Psychiatric: no motor/sensory deficits, alert, normal mood/affect, oriented x 3, power is 5/5 both on sides Skin: pallor; No rash, No ulcerations Data Review Labs Laboratory Tests 03/12/19 21:20: White Blood Count 10.2, Red Blood Count 4.98, Hemoglobin 10.8L, Hematocrit 36L, Mean Corpuscular Volume 71L, Mean Corpuscular Hemoglobin 22L, Mean Corpuscular Hemoglobin Concent 30L, Red Cell Distribution Width 24.4H, Platelet Count 303, Mean Platelet Volume 8.7, Neutrophils (%) (Auto) 61, Lymphocytes (%) (Auto) 24, Monocytes (%) (Auto) 15H, Eosinophils (%) (Auto) 0, Basophils (%) (Auto) 0, Neutrophils # (Auto) 6.2, Lymphocytes # (Auto) 2.4, Monocytes # (Auto) 1.5H, Eosinophils # (Auto) 0.0, Basophils # (Auto) 0.0, Sodium Level 125*L, Potassium Level 4.3, Chloride Level 90L, Carbon Dioxide Level 21, Anion Gap 14, Blood Urea Nitrogen 13, Creatinine 1.02, Estimat Glomerular Filtration Rate > 60, BUN/Creatinine Ratio 13, Glucose Level 127H, Calcium Level 9.1, Corrected Calcium 8.9, Magnesium Level 1.8, Total Bilirubin 0.5, Aspartate Amino Transf (AST/SGOT) 18, Alanine Aminotransferase (ALT/SGPT) 12, Alkaline Phosphatase 92, Troponin I < 0.30, Pro-B-Type Natriuretic Peptide 6295.0H, Total Protein 7.1, Albumin 4.2 03/12/19 22:46: Blood Gas Puncture Site RT RAD, Blood Gas Patient Temperature 36.9, Arterial Blood pH 7.47H, Arterial Blood Partial Pressure CO2 34L, Arterial Blood Partial Pressure O2 70L, Arterial Blood HCO3 25, Arterial Blood Total CO2 25.7, Arterial Blood Oxygen Saturation 95, Arterial Blood Base Excess 1.4, Patrick Test YES-POS, Blood Gas Ventilator Setting NO, Blood Gas Inspired Oxygen ROOM AIR 03/13/19 01:10: White Blood Count 9.6, Red Blood Count 5.30, Hemoglobin 11.3L, Hematocrit 36L, Mean Corpuscular Volume 69L, Mean Corpuscular Hemoglobin 21L, Mean Corpuscular Hemoglobin Concent 31L, Red Cell Distribution Width 24.6H, Platelet Count 323, Mean Platelet Volume 8.6, Neutrophils (%) (Auto) 58, Lymphocytes (%) (Auto) 23, Monocytes (%) (Auto) 19H, Eosinophils (%) (Auto) 0, Basophils (%) (Auto) 0, Neutrophils # (Auto) 5.6, Lymphocytes # (Auto) 2.2, Monocytes # (Auto) 1.8H, Eosinophils # (Auto) 0.0, Basophils # (Auto) 0.0, Sodium Level 127L, Potassium Level 3.8, Chloride Level 91L, Carbon Dioxide Level 23, Anion Gap 13, Blood Urea Nitrogen 12, Creatinine 1.20, Estimat Glomerular Filtration Rate 59, BUN/Creatinine Ratio 10, Glucose Level 104, Calcium Level 9.3, Corrected Calcium 9.1, Magnesium Level 1.8, Total Bilirubin 0.7, Aspartate Amino Transf (AST/SGOT) 17, Alanine Aminotransferase (ALT/SGPT) 14, Alkaline Phosphatase 93, Troponin I 0.029H, Total Protein 7.7, Albumin 4.2, Neutrophils % (Manual) 63, Lymphocytes % (Manual) 22, Monocytes % (Manual) 15, Phosphorus Level 3.5 03/13/19 04:50: Troponin I 0.030H, Iron Level 19L, Total Iron Binding Capacity 335, Unsaturated Iron Binding Capacity 316, Transferrin % Saturation 6L, B-Type Natriuretic Peptide 984.4H 03/13/19 14:50: Sodium Level 131L, Troponin I 0.028, Triglycerides Level 57, Cholesterol Level 118, LDL Cholesterol Direct 81, VLDL Cholesterol 11, HDL Cholesterol 35L Microbiology 03/12/19 Influenza Types A,B Antigen (RADHA) - Final, Complete ECG Impression ECG Initial ECG Rhythm: S.Tach A/P-Cardiology Assessment/Admission Diagnosis Acute respiratory failure, Acute congestive heart failure, COPD exacerbation, Severe hyponatremia, Microcytic anemia, Positive cardiac enzymes, Sinus tachycardia Plan Acute respiratory failure, likely multifactorial. COPD exacerbation, anemia, acute congestive heart failure. Acute congestive heart failure, check echocardiogram. 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 IV Lasix. COPD exacerbation, defer to the primary team. Severe hyponatremia, could be secondary to congestive heart failu re/cardiomyopathy. Severe hyponatremia in the setting of her cardiomyopathy is a poor prognostic sign. The patient was not on diuretics. Other etiologies of hyponatremia need to be looked into. Microcytic anemia, iron deficiency anemia and GI workup is recommended. Patient has significant smoking history, with microcytic anemia in this age group I'm concerned about a malignancy. I discussed with the primary team. Positive cardiac enzymes, working diagnosis is non-STEMI. However cardiac catheterization is not recommended in the setting of microcytic anemia unless it's an emergency. I will wait for the anemia/GI workup, before coronary angiography is done. However we will set up nuclear stress testing in the morning. Sinus tachycardia, likely due to significant systemic illness. Ex Significant discussion with the family and patient. Counseling took over 30 minutes. Complicated medical and cardiology issues as above. Thank you for your consultation. Please call me if you have any questions. Mark Moreno MD, FACP, FACC, FSCAI, FHRS, CCDS Interventional Cardiology Cardiac Electrophysiology Vascular Medicine and Endovascular Interventions Clinical Quality Measures DVT/VTE Risk/Contraindication: Risk Factor Score Per Nursin RFS Level Per Nursing on Admit: 4+=Very High Carlitos MORENO MD Mar 13, 2019 17:06
[2019-03-13] MEDS ORDERED: REGADENOSON 0.4 MG/5 ML SYR (LEXISCAN) IV ONE (17:15)
[2019-03-13 18:00] LABS: BILIRUBIN,URINE NEGATIVE (NEGATIVE); CLARITY,URINE CLEAR; COLOR,URINE YELLOW; GLUCOSE, URINE (UA) NEGATIVE (NEGATIVE); KETONES,URINE NEGATIVE (NEGATIVE); LEUKOCYTE ESTERASE ,URINE NEGATIVE (NEGATIVE); NITRITE,URINE NEGATIVE (NEGATIVE); PH,URINE 6.5 (5-9); PROTEIN,URINE TRACE (NEGATIVE)
[2019-03-13 18:06] LABS: BACTERIA,URINE NEGATIVE /HPF; SQUAMOUS EPITHELIAL CELL,UR 0-2 /HPF
[2019-03-13] MEDS: DOCUSATE SODIUM 100 MG (COLACE) CAP PO SCH (20:11)
[2019-03-13] MEDS: SENNOSIDES 8.6 MG (SENOKOT) TAB PO SCH (20:11)
[2019-03-13] MEDS: NICOTINE 21 MG (NICODERM) PATCH TD SCH (20:11)
[2019-03-14] VITALS (14 sets, daily range): BP systolic 90–143; BP diastolic 55–104
[2019-03-14] MEDS: RT-ALBUTEROL/IPRATROPIUM 3 ML (DUONEB) VIAL INH SCH ×6 (01:59→21:49)
[2019-03-14 03:57] LABS: BASOPHILS % (AUTO) 0 % (0-10); EOSINOPHILS % (AUTO) 0 % (0-10); HEMATOCRIT 32 % (40-54); HEMOGLOBIN 10.3 G/DL (13.3-17.7); LYMPHOCYTES # (AUTO) 1.4 X 10^3 (1.0-4.0); LYMPHOCYTES % (AUTO) 20 % (12-44); MEAN CORPUSCULAR HEMOGLOBIN 22 PG (25-34); MEAN CORPUSCULAR HGB CONC 32 G/DL (32-36); MEAN CORPUSCULAR VOLUME 68 FL (80-99); MEAN PLATELET VOLUME 8.5 FL (7.4-10.4); MONOCYTES # (AUTO) 2.3 X 10^3 (0.0-1.0); MONOCYTES % (AUTO) 32 % (0-12); NEUTROPHILS # (AUTO) 3.4 X 10^3 (1.8-7.8); NEUTROPHILS % (AUTO) 49 % (42-75); PLATELET COUNT 272 10^3/uL (130-400); RED CELL DISTRIBUTION WIDTH 25.2 % (10.0-14.5); WHITE BLOOD COUNT 7.1 10^3/uL (4.3-11.0)
[2019-03-14 04:27] LABS: BUN/CREATININE RATIO 11; CALCIUM 8.8 MG/DL (8.5-10.1); CARBON DIOXIDE 24 MMOL/L (21-32); CHLORIDE 95 MMOL/L (98-107); CREATININE SERUM 1.07 MG/DL (0.60-1.30); GFR ESTIMATED > 60; GLUCOSE 89 MG/DL (70-105); MAGNESIUM 1.7 MG/DL (1.6-2.4); PHOSPHORUS 3.3 MG/DL (2.3-4.7); POTASSIUM 3.6 MMOL/L (3.6-5.0); SODIUM 133 MMOL/L (135-145)
[2019-03-14] MEDS ORDERED: NS IV 1000 ML 1,000 ML IV SCH (05:15)
[2019-03-14] MEDS ORDERED: NS IV 1000 ML 1,000 ML ONE ×2 (05:39→15:50)
[2019-03-14] MEDS: POTASSIUM CL 10MEQ/50ML IVPB 50 ML IV SCH ×5 (05:45→09:43)
[2019-03-14] MEDS: MAGNESIUM 1 GM/100 ML IVPB 100 ML IV SCH ×3 (05:45→06:50)
[2019-03-14] MEDS: KCL 20 MEQ TAB (K-DUR) PO SCH ×3 (06:03→21:23)
--- NOTE | 2019-03-14 06:39 | Pulmonary Progress Note ---
Subjective Time Seen by a Provider: 06:36 Subjective/Events-last exam PT appears to be doing better. No productive cough. Family at bedside Sepsis Event Evaluation Height, Weight, BMI Height: '" Weight: lbs. oz. kg; 21.75 BMI Method: Exam Exam Vital Signs Date Time Temp Pulse Resp B/P (MAP) Pulse Ox O2 Delivery O2 Flow Rate FiO2 03/14/19 03:47 36.5 100 16 117/73 (88) 92 Room Air 03/14/19 03:47 Room Air 03/14/19 01:00 106 03/13/19 23:57 36.7 108 20 122/74 (90) 96 Room Air 03/13/19 23:13 Room Air 03/13/19 20:00 Room Air 03/13/19 20:00 36.8 114 16 138/78 (98) 97 Room Air 03/13/19 19:00 107 03/13/19 18:50 94 Room Air 03/13/19 17:00 101 14 126/79 (95) 94 Room Air 03/13/19 16:00 104 19 129/82 (98) 93 Room Air 03/13/19 16:00 Room Air 03/13/19 16:00 36.6 03/13/19 13:45 95 Room Air 03/13/19 12:41 110 03/13/19 12:00 37.0 03/13/19 12:00 Room Air 03/13/19 12:00 112 24 126/93 (104) 92 Room Air 03/13/19 10:00 114 23 164/94 (117) 96 Room Air 03/13/19 09:49 95 Room Air 03/13/19 09:00 112 16 132/96 (108) 95 Room Air 03/13/19 08:15 36.3 120 94 21 03/13/19 08:00 Room Air 03/13/19 08:00 112 19 139/86 (103) 96 Room Air 03/13/19 08:00 37.0 03/13/19 07:00 109 16 137/80 (99) 95 Room Air 03/13/19 06:45 108 I & O 03/14/19 07:00 Intake Total 2950 ml Output Total 4000 ml Balance -1050 ml Height & Weight Height: '" Weight: lbs. oz. kg; 21.75 BMI Method: General Appearance: No Apparent Distress, WD/WN HEENT: PERRL/EOMI, Pharynx Normal Neck: Normal Inspection, Supple Respiratory: Lungs Clear, Normal Breath Sounds, No Respiratory Distress Cardiovascular: Regular Rate, Rhythm, No Edema, No Murmur Capillary Refill: Less Than 3 Seconds Peripheral Pulses: 2+ Carotid (R), 2+ Carotid (L), 2+ Dorsalis Pedis (R), 2+ Left Dors-Pedis (L), 2+ Radial Pulses (R), 2+ Radial Pulses (L) Gastrointestinal: non tender, soft, no organomegaly, no pulsatile mass Extremity: Normal Inspection, Non Tender, Pedal Edema Neurologic/Psychiatric: Alert, Oriented x3, No Motor/Sensory Deficits, Normal Mood/Affect Skin: Normal Color, Warm/Dry Lymphatic: No Adenopathy Results Lab Laboratory Tests 03/12/19 21:20 03/13/19 01:10 03/13/19 14:50 03/14/19 03:10 Assessment/Plan Assessment/Plan NSTEMI with [facility] -Continue Lasix -Echo pending -Cardiology following Hyponatremia -Monitor -Check CT of chest with contrast r/o mass Tobacco use with probable COPD -DuoNeb txs -Education -Out pt testing anemia -Plan is for colonoscopy and EGD today Shortness of breath JAGJIT MEZA DO Mar 14, 2019 06:39
--- NOTE | 2019-03-14 07:40 | Progress Note - Surgery ---
BRIAN COWAN,MED STUDENT 03/14/19 0740: Subjective Date Seen by a Provider: Mar 14, 2019 Time Seen by a Provider: 07:16 Subjective/Events-last exam Patient seen and examined. Patient denies having anything to eat or drink after midnight. He has completed the Golytely and says that he's "cleared out." Patient and both say that he has not had much of an appetite recently. He has not much to eat since monday and he says that he still does not have much of an appetite. Review of Systems General: No Chills; Fatigue; No Appetite HEENT: No Head Aches, No Visual Changes, No Dysphasia; Sinus Congestion Pulmonary: Dyspnea, Cough Cardiovascular: No: Chest Pain, Palpitations, Edema Gastrointestinal: No: Nausea, Vomiting, Abdominal Pain, Diarrhea, Constipation, Melena, Hematochezia Objective Exam Vital Signs Date Time Temp Pulse Resp B/P (MAP) Pulse Ox O2 Delivery O2 Flow Rate FiO2 03/14/19 03:47 36.5 100 16 117/73 (88) 92 Room Air 03/14/19 03:47 Room Air 03/14/19 01:00 106 03/13/19 23:57 36.7 108 20 122/74 (90) 96 Room Air 03/13/19 23:13 Room Air 03/13/19 20:00 Room Air 03/13/19 20:00 36.8 114 16 138/78 (98) 97 Room Air 03/13/19 19:00 107 03/13/19 18:50 94 Room Air 03/13/19 17:00 101 14 126/79 (95) 94 Room Air 03/13/19 16:00 104 19 129/82 (98) 93 Room Air 03/13/19 16:00 Room Air 03/13/19 16:00 36.6 03/13/19 13:45 95 Room Air 03/13/19 12:41 110 03/13/19 12:00 37.0 03/13/19 12:00 Room Air 03/13/19 12:00 112 24 126/93 (104) 92 Room Air 03/13/19 10:00 114 23 164/94 (117) 96 Room Air 03/13/19 09:49 95 Room Air 03/13/19 09:00 112 16 132/96 (108) 95 Room Air 03/13/19 08:15 36.3 120 94 21 03/13/19 08:00 Room Air 03/13/19 08:00 112 19 139/86 (103) 96 Room Air 03/13/19 08:00 37.0 I & O 03/14/19 07:00 Intake Total 2950 ml Output Total 4000 ml Balance -1050 ml Capillary Refill : Less Than 3 Seconds General Appearance: No Apparent Distress, WD/WN HEENT: PERRL/EOMI Respiratory: No Accessory Muscle Use, No Respiratory Distress, Decreased Breath Sounds Cardiovascular: Regular Rate, Rhythm, No Edema, No Murmur Peripheral Pulses: 2+ Dorsalis Pedis (R), 2+ Left Dors-Pedis (L), 2+ Radial P ulses (R), 2+ Radial Pulses (L) Gastrointestinal: non tender, soft, no organomegaly, no pulsatile mass Extremity: Non Tender, No Calf Tenderness, No Pedal Edema Neurologic/Psychiatric: Alert, Oriented x3, Normal Mood/Affect Skin: Normal Color, Warm/Dry Results Lab Laboratory Tests 03/13/19 14:50: Sodium Level 131L, Troponin I 0.028, Triglycerides Level 57, Cholesterol Level 118, LDL Cholesterol Direct 81, VLDL Cholesterol 11, HDL Cholesterol 35L, Thyroid Stimulating Hormone (TSH) 1.54 03/13/19 17:45: Urine Color YELLOW, Urine Clarity CLEAR, Urine pH 6.5, Urine Specific [place] 1.015L, Urine Protein TRACE, Urine Glucose (UA) NEGATIVE, Urine Ketones NEGATIVE, Urine Nitrite NEGATIVE, Urine Bilirubin NEGATIVE, Urine Urobilinogen 1.0, Urine Leukocyte Esterase NEGATIVE, Urine RBC (Auto) 1+H, Urine RBC 2-5H, Urine WBC NONE, Urine Squamous Epithelial Cells 0-2, Urine Crystals NONE, Urine Bacteria NEGATIVE, Urine Casts NONE, Urine Mucus NEGATIVE, Urine Culture Indicated NO 03/14/19 03:10: Sodium Level 133L, Troponin I 0.035H, White Blood Count 7.1, Red Blood Count 4.73, Hemoglobin 10.3L, Hematocrit 32L, Mean Corpuscular Volume 68L, Mean Corpuscular Hemoglobin 22L, Mean Corpuscular Hemoglobin Concent 32, Red Cell Distribution Width 25.2H, Platelet Count 272, Mean Platelet Volume 8.5, Neutrophils (%) (Auto) 49, Lymphocytes (%) (Auto) 20, Monocytes (%) (Auto) 32H, Eosinophils (%) (Auto) 0, Basophils (%) (Auto) 0, Neutrophils # (Auto) 3.4, Lymphocytes # (Auto) 1.4, Monocytes # (Auto) 2.3H, Eosinophils # (Auto) 0.0, Basophils # (Auto) 0.0, Potassium Level 3.6, Chloride Level 95L, Carbon Dioxide Level 24, Anion Gap 14, Blood Urea Nitrogen 12, Creatinine 1.07, Estimat Glomerular Filtration Rate > 60, BUN/Creatinine Ratio 11, Glucose Level 89, Calcium Level 8.8, Phosphorus Level 3.3, Magnesium Level 1.7 Microbiology 03/12/19 Influenza Types A,B Antigen (RADHA) - Final, Complete Assessment/Plan Assessment/Plan Assessment/Plan microcytic anemia hgb down today [facility] asked to do EGD/Colonoscopy to rule out GI malignancy discussed risks and benefits of EGD/Colonoscopy and patient/family understand and wish for him to proceed. Patient NPO since midnight and completed bowel prep EGD/colonoscopy is planned to today Clinical Quality Measures DVT/VTE Risk/Contraindication: Risk Factor Score Per Nursin RFS Level Per Nursing on Admit: 4+=Very High PIA VERGARA DO 03/14/19 1044: Subjective Subjective/Events-last exam Patient no new complaints. Did prep last night. No issues. Breathing better. Denies n/v fever sweats chills shortness of breath or chest pain. Objective Exam General Appearance: No Apparent Distress HEENT: PERRL/EOMI Respiratory: No Accessory Muscle Use, No Respiratory Distress, Decreased Breath Sounds Cardiovascular: Regular Rate, Rhythm Gastrointestinal: non tender, soft, no organomegaly, no pulsatile mass Extremity: Non Tender, No Calf Tenderness, No Pedal Edema Neurologic/Psychiatric: Alert, Oriented x3, Normal Mood/Affect Skin: Normal Color, Warm/Dry Lymphatic: No Adenopathy Assessment/Plan Assessment/Plan Assessment/Plan microcytis anemia concern for gi bleed malignancy plan egd/colonoscopy today. Supervisory-Addendum Brief Verification & Attestation Participated in pt care: history, MDM, physical Personally performed: exam, history, MDM, supervision of care Care discussed with: Medical Student Procedures: n/a Results interpretation: Verified all documentation Verification and Attestation of Medical Student E/M Service A medical student performed and documented this service in my presence. I rev iewed and verified all information documented by the medical student and made modifications to such information, when appropriate. I personally performed the physical exam and medical decision making. Pia Vergara, Mar 14, 2019,10:44 BRIAN COWAN,MED STUDENT Mar 14, 2019 07:40 PIA VERGARA DO Mar 14, 2019 10:44
--- NOTE | 2019-03-14 08:01 | Diagnostic Imaging Report ---
INDICATION: Congestive heart failure FINDINGS: Air trapping and COPD chronic. Bilateral effusions decreased. There is chronic lung disease. The interstitial opacities have improved in the interim. The favorable changes likely reflect a reduction in interstitial edema. IMPRESSION: Likely decreased interstitial edema superimposed upon chronic features of COPD. Decreased pleural fluid. No adverse development. Dictated by: Dictated on workstation # [id number]
[2019-03-14] MEDS: FUROSEMIDE 40 MG/4 ML INJ (LASIX) IV SCH ×2 (09:44→21:25)
[2019-03-14] MEDS: SENNOSIDES 8.6 MG (SENOKOT) TAB PO SCH ×2 (09:45→21:30)
[2019-03-14] MEDS: DOCUSATE SODIUM 100 MG (COLACE) CAP PO SCH ×2 (09:45→21:22)
[2019-03-14] MEDS: RT-ADVAIR HFA 115/21 MCG PER PUFF IH SCH ×2 (10:09→19:30)
[2019-03-14] MEDS ORDERED: LACTATED RINGERS 1,000 ML IV ONE (10:28)
[2019-03-14] MEDS ORDERED: LACTATED RINGERS 1,000 ML IV STA (10:30)
[2019-03-14] MEDS ORDERED: HURRICAINE EXT TUBE (BENZOCAINE) XX PRN (10:30)
[2019-03-14] MEDS ORDERED: PROPOFOL INJECTION 50 ML IV ONE (10:33)
[2019-03-14] MEDS ORDERED: MIDAZOLAM 2 MG/2 ML (VERSED) VIAL ONE (10:34)
[2019-03-14] MEDS ORDERED: CATHETER FLUSH 10 ML SYR IV PRN (11:00)
[2019-03-14] MEDS ORDERED: PHENYLEPHRINE 100 MCG/ML 10 ML (ANESTHESIA) SYR ONE (11:20)
--- NOTE | 2019-03-14 11:23 | Cardiology Progress Note ---
Cardiology SOAP Progress Note Subjective: Improved shortness of breath. Objective: I&O/Vital Signs 03/14/19 03/14/19 03/14/19 03/14/19 06:43 08:00 08:00 10:09 Temp 36.6 Pulse 99 102 Resp 18 B/P (MAP) 143/87 (105) Pulse Ox 94 100 O2 Delivery Room Air Room Air Room Air 03/14/19 03/14/19 03/14/19 03/14/19 10:17 11:30 11:35 11:40 Pulse 84 84 93 Resp 16 16 16 Pulse Ox 95 95 98 O2 Delivery Room Air OxyMask OxyMask OxyMask O2 Flow Rate 8 8 8 03/14/19 03/14/19 03/14/19 03/14/19 11:45 11:50 12:45 12:45 Pulse 95 94 99 Resp 16 16 18 B/P (MAP) 127/78 (94) Pulse Ox 98 95 96 O2 Delivery Room Air Room Air Room Air Room Air 03/14/19 03/14/19 12:53 14:38 Pulse 99 Pulse Ox 98 O2 Delivery Room Air 03/14/19 00:00 Intake Total 2850 ml Output Total 2500 ml Balance 350 ml Constitutional: appears stated age, AAO x 3; No apparent distress; well-deve loped, well-nourished Respiratory: accessory muscle use, chest is bilaterally symmetric, other (course breath sounds bilaterally) Cardiovascular: regular rate-rhythm, tachycardia, S1 and S2 Gastrointestional: soft, audible bowel sounds; No spleenomegaly Extremities: normal range of motion, non-tender, normal inspection, pedal edema; No clubbing, No cyanosis, No significant edema Neurologic/Psychiatric: no motor/sensory deficits, alert, normal mood/affect, oriented x 3, power is 5/5 both on sides Skin: pallor; No rash, No ulcerations Results/Procedures: Labs Laboratory Tests 03/13/19 17:45: Urine Color YELLOW, Urine Clarity CLEAR, Urine pH 6.5, Urine Specific [place] 1.015L, Urine Protein TRACE, Urine Glucose (UA) NEGATIVE, Urine Ketones NEGATIVE, Urine Nitrite NEGATIVE, Urine Bilirubin NEGATIVE, Urine Urobilinogen 1.0, Urine Leukocyte Esterase NEGATIVE, Urine RBC (Auto) 1+H, Urine RBC 2-5H, Urine WBC NONE, Urine Squamous Epithelial Cells 0-2, Urine Crystals NONE, Urine Bacteria NEGATIVE, Urine Casts NONE, Urine Mucus NEGATIVE, Urine Culture Indicated NO 03/14/19 03:10: White Blood Count 7.1, Red Blood Count 4.73, Hemoglobin 10.3L, Hematocrit 32L, Mean Corpuscular Volume 68L, Mean Corpuscular Hemoglobin 22L, Mean Corpuscular Hemoglobin Concent 32, Red Cell Distribution Width 25.2H, Platelet Count 272, Mean Platelet Volume 8.5, Neutrophils (%) (Auto) 49, Lymphocytes (%) (Auto) 20, Monocytes (%) (Auto) 32H, Eosinophils (%) (Auto) 0, Basophils (%) (Auto) 0, Neutrophils # (Auto) 3.4, Lymphocytes # (Auto) 1.4, Monocytes # (Auto) 2.3H, Eosinophils # (Auto) 0.0, Basophils # (Auto) 0.0, Sodium Level 133L, Potassium Level 3.6, Chloride Level 95L, Carbon Dioxide Level 24, Anion Gap 14, Blood Urea Nitrogen 12, Creatinine 1.07, Estimat Glomerular Filtration Rate > 60, BUN/Creatinine Ratio 11, Glucose Level 89, Calcium Level 8.8, Phosphorus Level 3 .3, Magnesium Level 1.7, Troponin I 0.035H Microbiology 03/13/19 MRSA Screen - Final, Complete MRSA not isolated A/P: Assessment/Dx: Acute respiratory failure, Acute congestive heart failure, COPD exacerbation, Severe hyponatremia, Microcytic anemia, Positive cardiac enzymes, Sinus tachycardia Plan: Acute respiratory failure, likely multifactorial. COPD exacerbation, anemia, acute congestive heart failure. Acute congestive heart failure, echocardiogram shows moderate to severe LV systolic dysfunction. Significantly elevated BNP. IV Lasix. COPD exacerbation, severe emphysema. Defer to the primary team. CT chest done today shows severe emphysema. Suspicious left upper lobe lesion, could be scarring, pneumonitis or early lung neoplasm. Defer to the primary team. Severe hyponatremia, could be secondary to congestive heart failure/cardiomyopathy. Severe hyponatremia in the setting of her cardiomyopa thy is a poor prognostic sign. The patient was not on diuretics. Other etiologies of hyponatremia need to be looked into. Microcytic anemia, iron deficiency anemia and GI workup is recommended. Patient has significant smoking history, with microcytic anemia in this age group I'm concerned about a malignancy. I discussed with the primary team. Positive cardiac enzymes, working diagnosis is non-STEMI. GI endoscopy did not reveal any source of bleeding. Coronary angiography today. Sinus tachycardia, likely due to significant systemic illness. Thank you for your consultation. Please call me if you have any questions. Mark Moreno MD, FACP, FACC, FSCAI, FHRS, CCDS Interventional Cardiology Cardiac Electrophysiology Vascular Medicine and Endovascular Interventions Carlitos MORENO MD Mar 14, 2019 11:22
[2019-03-14] MEDS ORDERED: HURRICAINE EXT TUBE (BENZOCAINE) ONE (11:36)
--- NOTE | 2019-03-14 12:24 | Anesthesia-General Post-Op ---
MAC Patient Condition Mental Status/LOC: Same as Preop Cardiovascular: Satisfactory Nausea/Vomiting: Absent Respiratory: Satisfactory Pain: Controlled Complications: Absent Post Op Complications Complications None Follow Up Care/Instructions Patient Instructions None needed. Anesthesiology Discharge Order Discharge Order Patient is doing well, no complaints, stable vital signs, no apparent adverse anesthesia problems. No complications reported per nursing. FRED DORANTES CRNA Mar 14, 2019 12:24
--- NOTE | 2019-03-14 12:42 | Progress Note - Hospitalist ---
Subjective HPI/CC On Admission Date Seen by Provider: Mar 14, 2019 Time Seen by Provider: 09:00 Ambrosio Templeton is a 73-year-old male with past medical history of hypertension, hyperlipidemia, who presented with shortness of breath. He reports that the shortness of breath has been going on for some time. He reports having worseni ng shortness of breath with laying flat. He reports swelling in his lower extremities. He denies any fevers or chills. He denies any chest pain or palpitations. He denies abdominal pain, nausea, vomiting, or diarrhea. He has a current pack-a-day smoker. He is not currently being followed by a physician. He does not take any prescribed medications regularly. He has been taking Aleve 1000 mg daily. He denies any hematochezia or melena. Subjective/Events-last exam He reports having a long night due to his bowel prep. He is feeling short of breath this morning and is requesting a breathing treatment. He is feeling a lot better than when he came in. He made a lot of urine yesterday with the Lasix. He says his stools are clear at this time. He denies any fevers or chills. He denies any chest pain or palpitations. He denies any abdominal pain, nausea, or vomiting. Objective Exam Vital Signs Vital Signs Date Time Temp Pulse Resp B/P (MAP) Pulse Ox O2 Delivery O2 Flow Rate FiO2 03/14/19 11:50 94 16 95 Room Air 03/14/19 11:40 8 03/14/19 08:00 36.6 143/87 (105) 03/13/19 08:15 21 Capillary Refill : Less Than 3 Seconds General Appearance: No Apparent Distress, WD/WN HEENT: PERRL/EOMI, Pharynx Normal Neck: Normal Inspection, Supple Respiratory: No Respiratory Distress, Wheezing Cardiovascular: Regular Rate, Rhythm, No Murmur Gastrointestinal: Normal Bowel Sounds, Non Tender, Soft Extremity: Normal Inspection, Non Tender, Pedal Edema Neurologic/Psychiatric: Alert, Oriented x3, No Motor/Sensory Deficits, Normal Mood/Affect Skin: Normal Color, Warm/Dry Results/Procedures Lab Laboratory Tests 03/13/19 14:50 03/14/19 03:10 Patient resulted labs reviewed. Imaging: Reviewed Imaging Report Assessment/Plan Assessment and Plan Assess & Plan/Chief Complaint Acute heart failure with reduced ejection fraction NSTEMI Symptoms consistent with heart failure BNP elevated greater than 6000 on arrival Chest x-ray consistent with pulmonary edema and small bilateral pleural effusions Troponin mildly elevated upon arrival Cardiology consulted, assistance appreciated Echocardiogram revealed a reduced ejection fraction at 30-35 percent with diffuse hypokinesis Continue Lasix Planning for ischemic evaluation following endoscopies Hyponatremia Improving with diuresis Likely due to hypervolemia and CHF Possible COPD Nicotine dependence, uncomplicated, cigarettes Continue steroids MAT protocol Pulmonology consulted, appreciate assistance CT chest ordered today to rule out lung malignancy Iron deficiency anemia Mild anemia upon arrival MCV 70 Iron studies indicative of iron deficiency No previous colonoscopies Chronic NSAID use Consult general surgery, appreciate his assistance Planning for EGD/colonoscopy today DVT prophylaxis: Lovenox Diagnosis/Problems Diagnosis/Problems (1) Acute HFrEF (heart failure with reduced ejection fraction) Status: Acute (2) NSTEMI (non-ST elevation myocardial infarction) Status: Acute (3) Hyponatremia Status: Acute (4) Iron deficiency anemia Status: Chronic Qualifiers: Iron deficiency anemia type: unspecified iron deficiency Qualified Codes: D50.9 - Iron deficiency anemia, unspecified (5) Nicotine dependence, cigarettes, uncomplicated Status: Chronic Clinical Quality Measures DVT/VTE Risk/Contraindication: Risk Factor Score Per Nursin RFS Level Per Nursing on Admit: 4+=Very High SAMANTHA TRISTAN MD Mar 14, 2019 12:42
[2019-03-14] MEDS ORDERED: NS 100 ML (IVPB) BAG IV ONE (13:30)
[2019-03-14] MEDS ORDERED: HOLD METFORMIN - RECEIVED CONTRAST 20 ML VIAL IV SCH (13:30)
[2019-03-14] MEDS ORDERED: IOHEXOL 350 MG/ML 100 ML (OMNIPAQUE 350) VIAL IV ONE (13:30)
--- NOTE | 2019-03-14 14:10 | Diagnostic Imaging Report ---
PROCEDURE: CT chest with contrast only. TECHNIQUE: Multiple contiguous axial images were obtained through the chest after administration of intravenous contrast. Auto Exposure Controls were utilized during the CT exam to meet ALARA standards for radiation dose reduction. INDICATION: Cough, acute congestive heart failure, hyponatremia. COMPARISON: None. FINDINGS: There is mildly prominent soft tissue density in the hilar regions as well as mediastinal lymph node regions. However, pathologically enlarged lymphadenopathy is not suggested. Heart size is enlarged. No pericardial effusion. Prominent scattered coronary artery calcification. There is also at least mild severity cardiac valvular calcification. The thoracic aortic contour without significant aneurysmal dilatation. There is irregular plaque noted within the thoracic aorta particularly at the distal arch and proximal descending thoracic aorta. Prominent calcifications takeoff of the great vessels. There is significant atherosclerotic change about the particularly origin left subclavian artery. There is various asymmetric areas of esophageal distention. Some areas of retained intraluminal contents are also noted. There is advanced emphysematous change about the lung parenchyma. Bullous changes particularly at the lung apices. No dylan lobar consolidation. At the mid to lower central left lower lobe is a semisolid, somewhat spiculated density measuring 12 x 6 mm. No consolidating infiltrate to suggest pneumonia. Very small right pleural effusion layering dependently. Probable cyst superior pole right kidney. There is atherosclerotic changes with plaque and calcification at the proximal abdominal aorta. There is advanced degenerative changes about the thoracic spine. Small areas of prominent bridging osteophytes. IMPRESSION: 1. Negative for acute abnormality of the chest. 2. Cardiac enlargement with scattered coronary artery calcification. Overt failure does not appear to be suggested on this study. There is however very small right pleural effusion. 3. Rather advanced emphysematous lung disease. There is an irregular parenchymal density in the left upper lobe. While conceivably could be area of scarring or perhaps very small area of pneumonitis, underlying early lung neoplasm is definitely a diagnostic consideration and should be excluded. 4. Areas of distention of the esophagus with intraluminal debris. This could be reflective of underlying esophageal dysmotility, reflux or obstructive process. Dictated by: Dictated on workstation # [id number]
[2019-03-14] MEDS ORDERED: HEParin 1000 UNIT/ML (10ML VIAL) FOR BOLUS ONE (15:53)
[2019-03-14] MEDS ORDERED: HEParin (CATH LAB) 2,000 ML IV ONE (15:53)
[2019-03-14] MEDS ORDERED: LIDOCAINE 1% INJ 20 ML 20 ML VIAL ONE (15:53)
[2019-03-14] MEDS ORDERED: MIDAZOLAM 5 MG/5 ML (VERSED) VIAL ONE (15:54)
[2019-03-14] MEDS ORDERED: VERAPAMIL 5 MG/2 ML (CALAN) VIAL IV ONE (15:54)
[2019-03-14] MEDS ORDERED: fentaNYL INJECTION 100 MCG/2 ML AMP ONE (15:54)
[2019-03-14] MEDS ORDERED: NITRO DRIP 25000 MCG/D5W 250 ML IV ONE (15:54)
--- NOTE | 2019-03-14 17:23 | Cardiac Procedure Note-CS/ASA ---
Pre-Procedure Note Pre-Op Procedure Note H&P Reviewed The H&P was reviewed, patient examined and no changes noted. Date H&P Reviewed: Mar 14, 2019 Time H&P Reviewed: 16:00 Conscious Sedation Pre-Proced Time 16:00 ASA Score 3 For ASA 3 and 4: Consider anesthesia and medical clearance. Also, for patients with a history of failed moderate sedation consider anesthesia. Airway Lungs Heart ASA score ASA 1: a normal healthy patient ASA 2: a patient with a mild systemic disease (mid diabetes, controlled hypertension, obesity ASA 3: a patient with a severe systemic disease that limits activity (angina, COPD, prior Myocardial infarction) ASA 4: a patient with an incapacitating disease that is a constant threat to life (CHF, renal failure) ASA 5: a moribund patient not expected to survive 24 hrs. (ruptured aneurysm) ASA 6: a declared brain- patient whose organs are being harvested. For emergent operations, add the letter E after the classification Mallampati Classification Grade 1 Sedation Plan Analgesia, Amnesia, Plan communicated to team members, Discussed options with patient/fam, Discussed risks with patient/fam The patient is an appropriate candidate to undergo the planned procedure, sedation, and anesthesia. The patient immediately re-assessed prior to indication. Carlitos VILLAFANA MD Mar 14, 2019 17:23
--- NOTE | 2019-03-14 17:27 | Coronary Angiography Report ---
Coronary Angiography Report DATE OF PROCEDURE: 03/14/19 INDICATION: Non-STEMI, congestive heart failure PREOPERATIVE DIAGNOSIS: Non-STEMI, congestive heart failure POSTOPERATIVE DIAGNOSIS: Severe distal left main disease, proximal ramus disease, mid RCA stenosis. HISTORY: This is a 73-year-old gentleman who presented with severe shortness of breath. He was found to be in acute respiratory failure. He has history of chronic smoking and does not see any physicians. No cardiac evaluation. He was found to be having COPD exacerbation as well as acute systolic congestive heart failure. Echocardiogram done 03/12/2019 shows an EF of 30-35 percent. Moderate to severe mitral regurgitation. PA pressure of 4550 mmHg. Patient also had positive cardiac enzymes. He was treated for COPD exacerbation as well as with aggressive IV Lasix. He was -3.5 L yesterday and felt significantly better. We also found significant hyponatremia which could be secondary to cardiomyopathy. We also found microcytic anemia. Endoscopy done today did not show any significant bleeding lesions in the GI tract. A CT chest was done which showed severe emphysema and a possible suspicious left upper lobe lesion. Differential includes scarring, pneumonitis, early neoplasm. For his positive cardiac enzymes and congestive heart failure and working diagnosis of non-STEMI, he was brought to the slabbing machine operator for coronary angiography. PROCEDURES PERFORMED: 1.Coronary angiography. 2.Left heart catheterization. COMPLICATIONS: None. SPECIMENS: None. ESTIMATED BLOOD LOSS: 10 mL ANESTHESIA: Conscious sedation ANTICOAGULATION: IV heparin CONTRAST: 75 ML. FLUOROSCOPY: 4.4 minutes. FLOUROSCOPY DOSE: 539 mgy. PROCEDURE DETAILS: The patient is a 73 male and was brought to the slabbing machine operator after informed consent was taken. All the risks and complications were explained in detail; this included the risk of bleeding, vascular damage, stroke, WI and even . The patient was draped and prepped in the usual sterile fashion. Access was gained in the right radial artery with a 6 [place]i sheath. Coronary angiography and left heart catheterization was performed with the Morrill catheter. RCA angiography was done with a JR4 catheter. FINDINGS: 1.Left main: Severe distal left main disease. Stenosis severity 80 percent. 2.LAD: Moderate diffuse disease. 3.Left circumflex artery: Severe proximal ramus disease. Stenosis severity 90 percent. Proper left circumflex artery is small and nondominant. 4.RCA: Dominant RCA with severe diffuse disease in the mid RCA. 5.Left heart catheterization: LV pressure 122/2 mmHg. LVEDP 23 mmHg. Aortic pressure 104/53 mmHg. No gradient across the aortic valve. Moderate to severe LV systolic dysfunction. CONCLUSIONS: Severe distal left main disease, severe proximal ramus disease and severe mid RCA stenosis. I will send the patient for cardiac surgery or high risk PCI evaluation. Moderate to severe ischemic cardiomyopathy. Severe emphysema. Mark Moreno MD, FACP, FACC, [facility] Interventional Cardiology Carlitos MORENO MD Mar 14, 2019 17:27
[2019-03-14] MEDS ORDERED: PATIENT MAY USE OWN MEDS, ALL PO SCH (17:30)
[2019-03-14] MEDS ORDERED: NICOTINE PATCH REMOVAL TP SCH (20:59)
[2019-03-14] MEDS: ACETAMINOPHEN 325 MG TABLET PO PRN (21:23)
[2019-03-14] MEDS: NICOTINE 21 MG (NICODERM) PATCH TD SCH (21:23)
[2019-03-14] MEDS: NS IV 1000 ML 1,000 ML IV SCH (21:24)
[2019-03-14] MEDS ORDERED: HEParin DRIP 25000 UNIT/500ML 500 ML IV SCH (21:42)
[2019-03-14] MEDS ORDERED: HEParin 1000 UNIT/ML (10ML VIAL) FOR BOLUS IV PRN (21:45)
[2019-03-14 22:30] LABS: HEMOGLOBIN 10.6 G/DL (13.3-17.7); MEAN PLATELET VOLUME 8.3 FL (7.4-10.4); RED CELL DISTRIBUTION WIDTH 25.5 % (10.0-14.5); WHITE BLOOD COUNT 7.8 10^3/uL (4.3-11.0)
[2019-03-14 22:38] LABS: INR 1.1 (0.8-1.4); PROTHROMBIN TIME PATIENT 15.1 SEC (12.2-14.7)
--- NOTE | 2019-03-14 23:29 | OPERATIVE REPORT ---
DATE OF SERVICE: 03/14/2019 PREOPERATIVE DIAGNOSIS: Microcytic anemia. POSTOPERATIVE DIAGNOSES: Gastritis and sigmoid polyp. PROCEDURE: EGD with biopsies, colonoscopy with hot biopsy polypectomy. SURGEON: Pia Vergara DO ANESTHESIA: Per CUT AND PRINT MACHINE OPERATOR. ESTIMATED BLOOD LOSS: None. COMPLICATIONS: None. INDICATIONS: The patient is a 73-year-old male admitted in to the hospital. He was found to have microcytic anemia. He has been requested by cardiology for GI evaluation. The patient understands risks and benefits of procedure and wished to proceed with procedure. Consent was signed in the chart. DESCRIPTION OF PROCEDURE: The patient was taken to the endoscopy suite, placed in left lateral recumbent position. Timeout was performed. Scope was inserted in mouth, down the esophagus, stomach and into the duodenum without difficulty. There were no polyps, masses or ulcerations within the duodenum. Scope was then slowly retracted back into the stomach where it was further insufflated. Erythematous changes consistent with gastritis present throughout the majority of the stomach. Biopsy of the antrum and body were obtained. Scope was retroflexed noting no other pathology. Scope was returned to its normal position, slowly withdrawn to the distal esophagus. The distal esophagus had some slight erythematous changes, no polyps, masses or ulcerations. Biopsy of the GE junction was obtained. Scope was then slowly retracted back until completely remove, noting no other pathology. Digital rectal exam was performed. There were no palpable polyps, masses or ulcerations. Scope was inserted in the rectum, advanced all the way to the cecum with minimal difficulty. Prep was adequate with irrigation and suction. Scope was then slowly retracted back. There were no polyps, masses or ulcerations within the cecum, ascending, transverse and descending colon. In the sigmoid colon, small polyp was present, which hot biopsy polypectomy was performed. Scope was then continuously retracted back into the rectum, where it was also retroflexed, noting no other pathology. Scope was then returned to its normal position, slowly withdrawn until completely removed. The patient tolerated procedure well without any complications, taken to recovery room in stable condition. RECOMMENDATIONS: The patient to follow up on pathology of sigmoid colon polyp. He will need a repeat colonoscopy in 5 years. Any issues before that be seen at that time. The patient with gastritis, we will start him on Protonix 40 mg daily, would also try to refrain from using NSAIDs or anything that would irritate the stomach. Job ID: [id number] DocumentID: [id number] Dictated Date: 03/14/2019 14:37:39 Materials Development Engineer Date: 03/14/2019 23:28:10 Dictated By: PIA VERGARA DO
[2019-03-15] MEDS: RT-ALBUTEROL/IPRATROPIUM 3 ML (DUONEB) VIAL INH SCH ×3 (01:48→10:36)
[2019-03-15] MEDS: NS IV 1000 ML 1,000 ML IV SCH (03:41)
[2019-03-15 03:52] LABS: BASOPHILS % (AUTO) 0 % (0-10); EOSINOPHILS % (AUTO) 0 % (0-10); HEMATOCRIT 32 % (40-54); HEMOGLOBIN 9.9 G/DL (13.3-17.7); LYMPHOCYTES % (AUTO) 15 % (12-44); MEAN CORPUSCULAR HEMOGLOBIN 22 PG (25-34); MEAN CORPUSCULAR HGB CONC 31 G/DL (32-36); MEAN CORPUSCULAR VOLUME 70 FL (80-99); MEAN PLATELET VOLUME 8.7 FL (7.4-10.4); MONOCYTES # (AUTO) 1.9 X 10^3 (0.0-1.0); MONOCYTES % (AUTO) 28 % (0-12); NEUTROPHILS % (AUTO) 58 % (42-75); PLATELET COUNT 272 10^3/uL (130-400); RED CELL DISTRIBUTION WIDTH 25.1 % (10.0-14.5); WHITE BLOOD COUNT 6.9 10^3/uL (4.3-11.0)
--- NOTE | 2019-03-15 04:01 | Pulmonary Progress Note ---
Subjective Time Seen by a Provider: 04:47 Sepsis Event Evaluation Height, Weight, BMI Height: '" Weight: lbs. oz. kg; 21.75 BMI Method: Exam Exam Vital Signs Date Time Temp Pulse Resp B/P (MAP) Pulse Ox O2 Delivery O2 Flow Rate FiO2 03/15/19 01:48 98 Room Air 03/15/19 01:00 111 03/15/19 00:00 Room Air 03/15/19 00:00 36.8 03/14/19 21:50 Room Air 03/14/19 21:50 98 Vapotherm 50 03/14/19 20:00 104 19 126/74 (91) 94 Room Air 03/14/19 20:00 Room Air 03/14/19 19:00 103 03/14/19 18:40 98 Vapotherm 50 03/14/19 18:15 102 13 119/77 (91) 94 Room Air 03/14/19 18:00 101 14 122/104 (110) 96 Room Air 03/14/19 17:45 100 21 123/83 (96) 94 Room Air 03/14/19 17:30 99 20 126/79 (95) 97 Room Air 03/14/19 16:00 Room Air 03/14/19 16:00 36.7 100 18 128/84 (99) 95 Room Air 03/14/19 14:38 98 Room Air 03/14/19 12:53 99 03/14/19 12:45 99 18 127/78 (94) 96 Room Air 03/14/19 12:45 Room Air 03/14/19 11:50 94 16 95 Room Air 03/14/19 11:45 95 16 98 Room Air 03/14/19 11:40 93 16 98 OxyMask 8 03/14/19 11:35 84 16 95 OxyMask 8 03/14/19 11:30 84 16 95 OxyMask 8 03/14/19 10:17 Room Air 03/14/19 10:09 100 Room Air 03/14/19 08:00 36.6 102 18 143/87 (105) 94 Room Air 03/14/19 08:00 Room Air 03/14/19 06:43 99 I & O 03/15/19 07:00 Intake Total 700 ml Output Total 1100 ml Balance -400 ml Height & Weight Height: '" Weight: lbs. oz. kg; 21.75 BMI Method: General Appearance: No Apparent Distress, WD/WN HEENT: PERRL/EOMI, Pharynx Normal Neck: Normal Inspection, Supple Respiratory: No Respiratory Distress, Wheezing Cardiovascular: Regular Rate, Rhythm, No Murmur Capillary Refill: Less Than 3 Seconds Peripheral Pulses: 2+ Dorsalis Pedis (R), 2+ Left Dors-Pedis (L), 2+ Radial Pulses (R), 2+ Radial Pulses (L) Gastrointestinal: non tender, soft, no organomegaly, no pulsatile mass Extremity: Normal Inspection, Non Tender, Pedal Edema Neurologic/Psychiatric: Alert, Oriented x3, No Motor/Sensory Deficits, Normal Mood/Affect Skin: Normal Color, Warm/Dry Lymphatic: No Adenopathy Results Lab Laboratory Tests 03/13/19 14:50 03/14/19 03:10 03/14/19 22:20 03/15/19 03:20 Assessment/Plan Assessment/Plan NSTEMI with CHFAE EF 30-35% -Continue Lasix -Echo pending -Cardiology following -Plan is to transfer to [place] today for possible CABG. Hyponatremia -Monitor Lung nodule per CT of chest -Will have pt f/u with me in 3-4 wks after discharge -Will need serial CT scans Tobacco use with probable COPD -DuoNeb txs -Education -Out pt testing anemia -Plan is for colonoscopy and EGD today Shortness of breath JAGJIT MEZA DO Mar 15, 2019 04:01
[2019-03-15 04:17] LABS: BUN/CREATININE RATIO 13; CARBON DIOXIDE 20 MMOL/L (21-32); CHLORIDE 100 MMOL/L (98-107); CREATININE SERUM 1.09 MG/DL (0.60-1.30); GFR ESTIMATED > 60; GLUCOSE 109 MG/DL (70-105); MAGNESIUM 2.1 MG/DL (1.6-2.4); PHOSPHORUS 3.2 MG/DL (2.3-4.7); SODIUM 133 MMOL/L (135-145)
[2019-03-15] MEDS: KCL 20 MEQ TAB (K-DUR) PO SCH ×2 (05:09→10:09)
[2019-03-15] MEDS: POTASSIUM CL 10MEQ/50ML IVPB 50 ML IV SCH (05:09)
[2019-03-15] MEDS: MAGNESIUM 1 GM/100 ML IVPB 100 ML IV SCH (05:11)
[2019-03-15] MEDS: RT-ADVAIR HFA 115/21 MCG PER PUFF IH SCH (06:18)
--- NOTE | 2019-03-15 07:27 | Diagnostic Imaging Report ---
INDICATION: Hyponatremia Portable chest 3:11 AM There are emphysematous changes in the lungs. Heart size and pulmonary vascularity are within normal limits. There are no infiltrates, effusions or pneumothoraces. IMPRESSION: COPD. No appreciable change compared to the previous day. Dictated by: Dictated on workstation # [id number]
[2019-03-15 08:00] VITALS: BP 136/83
--- NOTE | 2019-03-15 08:00 | Progress Note - Surgery ---
Subjective Date Seen by a Provider: Mar 15, 2019 Time Seen by a Provider: 07:30 Subjective/Events-last exam Patient seen and examined. He says that he is feeling good today and that he is sleeping better than he has in the past. He reports coughing less since starting the breathing treatments and denies having any chest or abdominal pain currently. Review of Systems General: No Chills, No Fatigue, No Malaise, No Appetite HEENT: No Head Aches, No Dysphasia Pulmonary: No Dyspnea, No Cough Cardiovascular: No: Chest Pain, Palpitations Gastrointestinal: No: Nausea, Vomiting, Abdominal Pain, Diarrhea, Constipation Genitourinary: No Dysuria, No Frequency Objective Exam Vital Signs Date Time Temp Pulse Resp B/P (MAP) Pulse Ox O2 Delivery O2 Flow Rate FiO2 03/15/19 06:21 Room Air 03/15/19 06:20 98 Room Air 03/15/19 04:00 36.4 03/15/19 04:00 Room Air 03/15/19 01:48 98 Room Air 03/15/19 01:00 111 03/15/19 00:00 Room Air 03/15/19 00:00 36.8 03/14/19 21:50 Room Air 03/14/19 21:50 98 Vapotherm 50 03/14/19 20:00 104 19 126/74 (91) 94 Room Air 03/14/19 20:00 Room Air 03/14/19 19:00 103 03/14/19 18:40 98 Vapotherm 50 03/14/19 18:15 102 13 119/77 (91) 94 Room Air 03/14/19 18:00 101 14 122/104 (110) 96 Room Air 03/14/19 17:45 100 21 123/83 (96) 94 Room Air 03/14/19 17:30 99 20 126/79 (95) 97 Room Air 03/14/19 16:00 Room Air 03/14/19 16:00 36.7 100 18 128/84 (99) 95 Room Air 03/14/19 14:38 98 Room Air 03/14/19 12:53 99 03/14/19 12:45 99 18 127/78 (94) 96 Room Air 03/14/19 12:45 Room Air 03/14/19 11:50 94 16 95 Room Air 03/14/19 11:45 95 16 98 Room Air 03/14/19 11:40 93 16 98 OxyMask 8 03/14/19 11:35 84 16 95 OxyMask 8 03/14/19 11:30 84 16 95 OxyMask 8 03/14/19 10:17 Room Air 03/14/19 10:09 100 Room Air 03/14/19 08:00 36.6 102 18 143/87 (105) 94 Room Air 03/14/19 08:00 Room Air I & O 03/15/19 07:00 Intake Total 700 ml Output Total 1500 ml Balance -800 ml Capillary Refill : Less Than 3 Seconds General Appearance: No Apparent Distress, WD/WN HEENT: PERRL/EOMI; No Scleral Icterus (L), No Scleral Icterus (R) Neck: Non Tender, Supple Respiratory: Chest Non Tender, Lungs Clear, No Accessory Muscle Use, No Respiratory Distress, Decreased Breath Sounds Cardiovascular: No Edema, No Murmur, Normal Peripheral Pulses, Tachycardia (with sinus rhythm ) Peripheral Pulses: 2+ Dorsalis Pedis (R), 2+ Left Dors-Pedis (L), 2+ Radial Pulses (R), 2+ Radial Pulses (L) Gastrointestinal: non tender, soft, no organomegaly, no pulsatile mass Extremity: Non Tender, No Calf Tenderness, No Pedal Edema Neurologic/Psychiatric: Alert, Oriented x3, Normal Mood/Affect Skin: Normal Color, Warm/Dry Results Lab Laboratory Tests 03/14/19 22:20: White Blood Count 7.8, Red Blood Count 4.86, Hemoglobin 10.6L, Hematocrit 34L, Mean Corpuscular Volume 70L, Mean Corpuscular Hemoglobin 22L, Mean Corpuscular Hemoglobin Concent 31L, Red Cell Distribution Width 25.5H, Platelet Count 290, Mean Platelet Volume 8.3, Prothrombin Time 15.1H, INR Comment 1.1, Activated Partial Thromboplast Time 33 03/15/19 03:20: White Blood Count 6.9, Red Blood Count 4.59, Hemoglobin 9.9L, Hematocrit 32L, Mean Corpuscular Volume 70L, Mean Corpuscular Hemoglobin 22L, Mean Corpuscular Hemoglobin Concent 31L, Red Cell Distribution Width 25.1H, Platelet Count 272, Mean Platelet Volume 8.7, Activated Partial Thromboplast Time 34, Neutrophils (%) (Auto) 58, Lymphocytes (%) (Auto) 15, Monocytes (%) (Auto) 28H, Eosinophils (%) (Auto) 0, Basophils (%) (Auto) 0, Neutrophils # (Auto) 4.0, Lymphocytes # (Auto) 1.0, Monocytes # (Auto) 1.9H, Eosinophils # (Auto) 0.0, Basophils # (Auto) 0.0, Sodium Level 133L, Potassium Level 4.0, Chloride Level 100, Carbon Dioxide Level 20L, Anion Gap 13, Blood Urea Nitrogen 14, Creatinine 1.09, Est imat Glomerular Filtration Rate > 60, BUN/Creatinine Ratio 13, Glucose Level 109H, Calcium Level 9.0, Phosphorus Level 3.2, Magnesium Level 2.1 Microbiology 03/13/19 MRSA Screen - Final, Complete MRSA not isolated Assessment/Plan Assessment/Plan Assessment/Plan microcytis anemia- no signs of active bleeding seen on EGD or Colonoscopy Patient is being transferred to for a CABG today. Patient can f/u in out patient setting to discuss findings of EGD and colonoscopy after his CABG. Clinical Quality Measures DVT/VTE Risk/Contraindication: Risk Factor Score Per Nursin RFS Level Per Nursing on Admit: 4+=Very High BRIAN COWAN,MED STUDENT Mar 15, 2019 08:00
[2019-03-15] MEDS: FUROSEMIDE 40 MG/4 ML INJ (LASIX) IV SCH (10:09)
[2019-03-15] MEDS: DOCUSATE SODIUM 100 MG (COLACE) CAP PO SCH (10:09)
[2019-03-15] MEDS: SENNOSIDES 8.6 MG (SENOKOT) TAB PO SCH (10:09)
--- NOTE | 2019-03-15 16:05 | Discharge Summary ---
Discharge Summary Hospital Course Was the Problem List Reviewed?: Yes Problems/Dx: (1) Acute HFrEF (heart failure with reduced ejection fraction) Status: Acute (2) NSTEMI (non-ST elevation myocardial infarction) Status: Acute (3) Hyponatremia Status: Acute (4) Iron deficiency anemia Status: Chronic Qualifiers: Qualified Codes: D50.9 - Iron deficiency anemia, unspecified (5) Nicotine dependence, cigarettes, uncomplicated Status: Chronic (6) Coronary artery disease Status: Acute Qualifiers: Qualified Codes: I25.10 - Atherosclerotic heart disease of [place] coronary artery without angina pectoris (7) Pulmonary nodule Status: Acute (8) COPD (chronic obstructive pulmonary disease) Status: Chronic Qualifiers: Qualified Codes: J44.9 - Chronic obstructive pulmonary disease, unspecified Hospital Course Date of Admission: Mar 12, 2019 at 22:33 Admission Diagnosis : acute congestive heart failure Family Physician/Provider: Davidson Gama MD Date of Discharge: 03/15/19 Discharge Diagnosis: acute heart failure with reduced ejection fraction, multivessel coronary artery disease, iron deficiency anemia, COPD, pulmonary nodule Hospital Course: Ambrosio Templeton is a 73-year-old male with past medical history of tobacco abuse who presented with shortness of breath. Further evaluation revealed a new diag nosis of the heart failure with reduced ejection fraction. He was diuresed and responded well. He was also found to have a an iron deficiency anemia and underwent endoscopies which were unrevealing other than a single polyp which was removed. He underwent CT scan of the chest which revealed changes consistent with COPD as well as a solitary pulmonary nodule. Pulmonology was consulted and plans to follow up with the patient for serial CT scans. He had a mildly elevated troponin on admission and with his new onset of heart failure and ischemic evaluation was performed. He underwent cardiac catheterization which revealed multivessel coronary artery disease. He was transferred to [facility] for further intervention and possible CABG. Labs and Pending Lab Test: Laboratory Tests 03/14/19 22:20: White Blood Count 7.8, Red Blood Count 4.86, Hemoglobin 10.6L, Hematocrit 34L, Mean Corpuscular Volume 70L, Mean Corpuscular Hemoglobin 22L, Mean Corpuscular Hemoglobin Concent 31L, Red Cell Distribution Width 25.5H, Platelet Count 290, Mean Platelet Volume 8.3, Prothrombin Time 15.1H, INR Comment 1.1, Activated Partial Thromboplast Time 33 03/15/19 03:20: White Blood Count 6.9, Red Blood Count 4.59, Hemoglobin 9.9L, Hematocrit 32L, Mean Corpuscular Volume 70L, Mean Corpuscular Hemoglobin 22L, Mean Corpuscular Hemoglobin Concent 31L, Red Cell Distribution Width 25.1H, Platelet Count 272, Mean Platelet Volume 8.7, Activated Partial Thromboplast Time 34, Neutrophils (%) (Auto) 58, Lymphocytes (%) (Auto) 15, Monocytes (%) (Auto) 28H, Eosinophils (%) (Auto) 0, Basophils (%) (Auto) 0, Neutrophils # (Auto) 4.0, Lymphocytes # (Auto) 1.0, Monocytes # (Auto) 1.9H, Eosinophils # (Auto) 0.0, Basophils # (Auto) 0.0, Sodium Level 133L, Potassium Level 4.0, Chloride Level 100, Carbon Dioxide Level 20L, Anion Gap 13, Blood Urea Nitrogen 14, Creatinine 1.09, Estimat Glomerular Filtration Rate > 60, BUN/Creatinine Ratio 13, Glucose Level 109H, Calcium Level 9.0, Phosphorus Level 3.2, Magnesium Level 2.1 Microbiology 03/13/19 MRSA Screen - Final, Complete MRSA not isolated Home Meds Active Reported Aleve (Naproxen Sodium) 220 Mg Tablet 440 Mg PO BID Aspirin EC (Aspirin) 325 Mg Tablet.dr 325 Mg PO 1200 Assessment/Pt Instructions patient transferred to for further cardiology evaluation and possible CABG Discharge Planning: <30 minutes discharge planning Discharge Instructions Discharge Diet: No Restrictions Activity as Tolerated: Yes Pneumonia Vaccine Order Indica: Yes Consultations cardiology, pulmonology, general surgery Discharge Physical Examination Vital Signs Vital Signs Date Time Temp Pulse Resp B/P (MAP) Pulse Ox O2 Delivery O2 Flow Rate FiO2 03/15/19 12:00 37.0 108 19 94 Room Air 03/15/19 08:00 136/83 (100) 03/14/19 21:50 50 03/14/19 11:40 8 General Appearance: No Apparent Distress, WD/WN HEENT: PERRL/EOMI, Pharynx Normal Respiratory: No Respiratory Distress, Wheezing Cardiovascular: Regular Rate, Rhythm, No Edema, No Murmur Gastrointestinal: Normal Bowel Sounds, Non Tender, Soft Extremity: Normal Inspection, Non Tender, No Pedal Edema Skin: Normal Color, Warm/Dry Neurologic/Psychiatric: Alert, Oriented x3, No Motor/Sensory Deficits, Normal Mood/Affect Allergies: Coded Allergies: Absjqgj-Bzh-Adl Reductase Inhibitor (Verified Allergy, Severe, myopathy , 03/13/19) Discharge Summary Date of Admission Mar 12, 2019 at 22:33 Date of Discharge Mar 15, 2019 at 13:39 Discharge Date: Mar 15, 2019 Discharge Time: 13:39 Admission Diagnosis Acute congestive heart failure, unspecified type Consults/Procedures Consulations Cardiology, pulmonology, general surgery Procedures EGD/colonoscopy, left heart catheterization Discharge Diagnosis Acute heart failure with reduced ejection fraction, multivessel coronary artery disease, COPD, pulmonary nodule, Iron deficiency anemia (1) Acute HFrEF (heart failure with reduced ejection fraction) Status: Acute (2) NSTEMI (non-ST elevation myocardial infarction) Status: Acute (3) Hyponatremia Status: Acute (4) Iron deficiency anemia Status: Chronic Qualifiers: Qualified Codes: D50.9 - Iron deficiency anemia, unspecified (5) Nicotine dependence, cigarettes, uncomplicated Status: Chronic Clinical Quality Measures DVT/VTE Risk/Contraindication: Risk Factor Score Per Nursin RFS Level Per Nursing on Admit: 4+=Very High SAMANTHA TRISTAN MD Mar 15, 2019 16:02
--- NOTE | 2019-03-15 16:12 | Cardiology Progress Note ---
Cardiology SOAP Progress Note Subjective: No chest pain. Improved shortness of breath. Objective: I&O/Vital Signs Constitutional: appears stated age, AAO x 3; No apparent distress; well- developed, well-nourished Respiratory: accessory muscle use, chest is bilaterally symmetric, other (course breath sounds bilaterally) Cardiovascular: regular rate-rhythm, tachycardia, S1 and S2 Gastrointestional: soft, audible bowel sounds; No spleenomegaly Extremities: normal range of motion, non-tender, normal inspection, pedal edema; No clubbing, No cyanosis, No significant edema Neurologic/Psychiatric: no motor/sensory deficits, alert, normal mood/affect, oriented x 3, power is 5/5 both on sides Skin: pallor; No rash, No ulcerations Results/Procedures: Labs Microbiology 03/13/19 MRSA Screen - Final, Complete MRSA not isolated A/P: Assessment/Dx: Acute respiratory failure, Acute congestive heart failure, COPD exacerbation, Severe hyponatremia, Microcytic anemia, Positive cardiac enzymes, Sinus tachycardia Plan: Acute respiratory failure, likely multifactorial. COPD exacerbation, anemia, acute congestive heart failure. Acute congestive heart failure, echocardiogram shows moderate to severe LV systolic dysfunction. Significantly elevated BNP. IV Lasix. COPD exacerbation, severe emphysema. Defer to the primary team. CT chest done today shows severe emphysema. Suspicious left upper lobe lesion, could be scarring, pneumonitis or early lung neoplasm. Defer to the primary team. Severe hyponatremia, could be secondary to congestive heart failure/cardiomyopathy. Severe hyponatremia in the setting of her cardiomyopathy is a poor prognostic sign. The patient was not on diuretics. Other etiologies of hyponatremia need to be looked into. Microcytic anemia, iron deficiency anemia and GI workup is recommended. Patient has significant smoking history, with microcytic anemia in this age group I'm concerned about a malignancy. I discussed with the primary team. Positive cardiac enzymes, working diagnosis is non-STEMI. GI endoscopy did not reveal any source of bleeding. Coronary angiography done 03/14/2019 showed severe distal left main disease, proximal ramus severe disease, severe mid RCA stenosis. Transfer to for cardiac surgery or high risk PCI evaluation. Sinus tachycardia, likely due to significant systemic illness. Thank you for your consultation. Please call me if you have any questions. Mark Moreno MD, FACP, FACC, FSCAI, FHRS, CCDS Interventional Cardiology Cardiac Electrophysiology Vascular Medicine and Endovascular Interventions Carlitos MORENO MD Mar 15, 2019 16:12
[2019-03-16] MEDS ORDERED: PANTOPRAZOLE 40 MG (PROTONIX) VIAL IV SCH (09:00)
== END 2019-03-15 13:39 | disposition short-term general hospital (02) | DRG 280 ==
LOC: ER FS 20:55 → ICU 22:33
PROVIDERS: ADMIT Internal Medicine; ATTEND Internal Medicine
PROC: 0DB78ZX Excision of Stomach, Pylorus, Via Natural or Artificial Opening Endoscopic, Diagnostic (ICD-10-PCS; 2019-03-14)
PROC: 0DB48ZX Excision of Esophagogastric Junction, Via Natural or Artificial Opening Endoscopic, Diagnostic (ICD-10-PCS; 2019-03-14)
PROC: 0DBN8ZZ Excision of Sigmoid Colon, Via Natural or Artificial Opening Endoscopic (ICD-10-PCS; 2019-03-14)
PROC: 4A023N7 Measurement of Cardiac Sampling and Pressure, Left Heart, Percutaneous Approach (ICD-10-PCS; principal; 2019-03-14 10:50)
PROC: B2111ZZ Fluoroscopy of Multiple Coronary Arteries using Low Osmolar Contrast (ICD-10-PCS; 2019-03-14 10:50)
DX: I11.0 Hypertensive heart disease with heart failure (principal); I21.4 Non-ST elevation (NSTEMI) myocardial infarction; J96.00 Acute respiratory failure, unspecified whether with hypoxia or hypercapnia; E87.1 Hypo-osmolality and hyponatremia; I50.23 Acute on chronic systolic (congestive) heart failure; J43.9 Emphysema, unspecified; I42.9 Cardiomyopathy, unspecified; E78.5 Hyperlipidemia, unspecified; F17.210 Nicotine dependence, cigarettes, uncomplicated; D50.9 Iron deficiency anemia, unspecified; M54.5 Low back pain; F41.9 Anxiety disorder, unspecified; F32.9 Major depressive disorder, single episode, unspecified; I49.3 Ventricular premature depolarization; R00.0 Tachycardia, unspecified; I44.4 Left anterior fascicular block; K29.70 Gastritis, unspecified, without bleeding; K63.5 Polyp of colon; I25.10 Atherosclerotic heart disease of native coronary artery without angina pectoris; Z79.1 Long term (current) use of non-steroidal anti-inflammatories (NSAID)
CPT/HCPCS: 36415; 71045; 71046; 71260; 80048; 80053; 80061; 81000; 82728; 82805; 83540; 83735; 83880; 84100; 84295; 84300; 84443; 84484; 85007; 85025; 85027; 85610; 85730; 87081; 87804; 93005; 93041; 93306; 93458; 94640; 94760; 96374

== ENCOUNTER → 2019-04-12 | Outpatient (CLI) | payer MEDICARE ==
[~2019-04-12] MED LIST: ASPI325T32 PO; CATHETER FLUSH 10 ML SYR IV PRN; HOLD METFORMIN - RECEIVED CONTRAST 20 ML VIAL IV SCH; IOHEXOL 350 MG/ML 100 ML (OMNIPAQUE 350) VIAL IV ONE; NAPR220T66 PO; NS 100 ML (IVPB) BAG IV ONE
--- NOTE | 2019-04-12 17:49 | Diagnostic Imaging Report ---
INDICATION: Neck pain and swelling. TECHNIQUE: Multiple contiguous axial images were obtained through the neck after uneventful bolus administration of intravenous contrast. Sagittal and coronal reformations were then performed. All CT scans use one or more of the following dose optimizing techniques: automated exposure control, MA and/or KvP adjustment based on patient size and exam type or iterative reconstruction. FINDINGS: The visualized intracranial structures are unremarkable. The visualized globes and intraorbital structures are unremarkable. There is opacification of the right maxillary sinus. There is minimal mucosal thickening in the sphenoid sinus. Remaining visualized sinuses are clear. Mastoid air cells are clear. The nasopharyngeal, oropharyngeal and hypopharyngeal tissues are grossly symmetrical and without mass effect. There is diffuse enlargement of the left parotid gland suspect for parotitis. Right parotid gland is grossly normal in appearance. The submandibular glands appear to be unremarkable. The thyroid is grossly normal in appearance. There are bilateral pleural effusions. There is severe bullous and emphysematous disease in the lung apices. There appears to be some diffuse thickening of the aortic wall. There appears to be occlusion of the left vertebral body near its origin. The common carotid arteries are widely patent. There is atherosclerotic plaque about the carotid bifurcations bilaterally. The internal carotid arteries and right vertebral artery are widely patent. There is reconstitution of the left vertebral body at approximately the level of C3-C4. This is likely filling in a retrograde fashion. There is marked cervical spondylosis. The prevertebral soft tissues are grossly within normal limits. The epiglottis is unremarkable. There is no definite pathologically enlarged adenopathy or mass in the neck. IMPRESSION: Diffuse enlargement of the left parotid gland suspect for parotitis. 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 Right maxillary and sphenoid sinus disease. Moderately severe cervical spondylosis. Bilateral pleural effusions and severe bullous emphysematous disease in the lungs bilaterally. Nonspecific thickening of the aortic wall. While this may simply reflect noncalcified atherosclerotic disease the possibility of an aortitis or vasculitis certainly cannot be excluded. Recommend clinical correlation and follow-up imaging as clinically warranted. Dictated by: Dictated on workstation # [id number]
== END ==
LOC: RAD 16:27
PROVIDERS: ATTEND Physician Assistant
DX: M47.812 Spondylosis without myelopathy or radiculopathy, cervical region (principal); K11.1 Hypertrophy of salivary gland; J32.0 Chronic maxillary sinusitis; J32.3 Chronic sphenoidal sinusitis; J43.9 Emphysema, unspecified; J90 Pleural effusion, not elsewhere classified; I35.8 Other nonrheumatic aortic valve disorders
CPT/HCPCS: 70498

== ENCOUNTER → 2019-05-06 | Outpatient (CLI) | payer MEDICARE ==
[~2019-05-06] MED LIST changes: -CATHETER FLUSH 10 ML SYR IV PRN
[2019-05-06 16:52] LABS: BUN/CREATININE RATIO 12; CREATININE SERUM 0.78 MG/DL (0.60-1.30); GFR ESTIMATED > 60
--- NOTE | 2019-05-06 17:53 | Diagnostic Imaging Report ---
PROCEDURE: CT chest with contrast only. TECHNIQUE: Multiple contiguous axial images were obtained through the chest after administration of intravenous contrast. Auto Exposure Controls were utilized during the CT exam to meet ALARA standards for radiation dose reduction. INDICATION: Short of breath, cough, recent median sternotomy. FINDINGS: There is obstructive airway disease. There is bibasilar atelectasis. There are bilateral effusions, right greater than left. Effusions layer to a depth of 4-5 cm on the right and 2 cm on the left. There is cardiomegaly with no failure. There is no mediastinal mass or hemorrhage evident. No abscess is evident. There are changes of median sternotomy with no acute bony abnormality evident. IMPRESSION: COPD with bilateral pleural effusions. Dictated by: Dictated on workstation # [id number]
== END ==
LOC: RT 16:18
PROVIDERS: ATTEND Nurse Practitioner Family
DX: J44.9 Chronic obstructive pulmonary disease, unspecified (principal); J90 Pleural effusion, not elsewhere classified; J30.9 Allergic rhinitis, unspecified
CPT/HCPCS: 36415; 71260; 82565; 84520

== ENCOUNTER → 2019-05-09 | Outpatient (CLI) | payer MEDICARE ==
[~2019-05-09] MED LIST changes: -HOLD METFORMIN - RECEIVED CONTRAST 20 ML VIAL IV SCH; -IOHEXOL 350 MG/ML 100 ML (OMNIPAQUE 350) VIAL IV ONE; -NS 100 ML (IVPB) BAG IV ONE
== END ==
LOC: WOUNDCARE 13:28
PROVIDERS: ATTEND Surgery
DX: T81.31XA Disruption of external operation (surgical) wound, not elsewhere classified, initial encounter (principal); L98.492 Non-pressure chronic ulcer of skin of other sites with fat layer exposed; L97.822 Non-pressure chronic ulcer of other part of left lower leg with fat layer exposed; L89.512 Pressure ulcer of right ankle, stage 2; E44.0 Moderate protein-calorie malnutrition; J44.9 Chronic obstructive pulmonary disease, unspecified
CPT/HCPCS: 99214

== ENCOUNTER → 2019-05-20 | Outpatient (CLI) | payer MEDICARE | LOC: WOUNDCARE 13:53 | PROVIDERS: ATTEND Surgery | DX: T81.31XA Disruption of external operation (surgical) wound, not elsewhere classified, initial encounter (principal); L98.492 Non-pressure chronic ulcer of skin of other sites with fat layer exposed; L97.822 Non-pressure chronic ulcer of other part of left lower leg with fat layer exposed; L89.512 Pressure ulcer of right ankle, stage 2; E44.0 Moderate protein-calorie malnutrition; J44.9 Chronic obstructive pulmonary disease, unspecified | CPT/HCPCS: 99213 ==

== ENCOUNTER → 2019-05-30 | Outpatient (CLI) | payer MEDICARE ==
[2019-05-30 12:46] LABS: HEMATOCRIT 40 % (40-54); HEMOGLOBIN 11.1 G/DL (13.3-17.7); MEAN CORPUSCULAR HEMOGLOBIN 20 PG (25-34); MEAN CORPUSCULAR HGB CONC 28 G/DL (32-36); MEAN CORPUSCULAR VOLUME 71 FL (80-99); WHITE BLOOD COUNT 9.8 10^3/uL (4.3-11.0)
[2019-05-30 12:47] LABS: BASOPHILS % (AUTO) 0 % (0-10); EOSINOPHILS % (AUTO) 0 % (0-10); LYMPHOCYTES # (AUTO) 1.4 X 10^3 (1.0-4.0); LYMPHOCYTES % (AUTO) 15 % (12-44); MEAN PLATELET VOLUME 9.6 FL (7.4-10.4); MONOCYTES # (AUTO) 0.5 X 10^3 (0.0-1.0); MONOCYTES % (AUTO) 5 % (0-12); NEUTROPHILS # (AUTO) 7.8 X 10^3 (1.8-7.8); NEUTROPHILS % (AUTO) 80 % (42-75); PLATELET COUNT 157 10^3/uL (130-400)
[2019-05-30 13:13] LABS: ALANINE AMINOTRANSFERASE 67 U/L (0-55); ALBUMIN 3.4 GM/DL (3.2-4.5); ALKALINE PHOSPHATASE 89 U/L (40-136); BILIRUBIN,TOTAL 2.2 MG/DL (0.1-1.0); BUN/CREATININE RATIO 33; CALCIUM 9.2 MG/DL (8.5-10.1); CARBON DIOXIDE 25 MMOL/L (21-32); CHLORIDE 90 MMOL/L (98-107); CREATININE SERUM 0.92 MG/DL (0.60-1.30); GFR ESTIMATED > 60; GLUCOSE 93 MG/DL (70-105); SODIUM 132 MMOL/L (135-145); TOTAL PROTEIN 6.2 GM/DL (6.4-8.2)
== END ==
LOC: LAB FS 11:55
PROVIDERS: ATTEND Internal Medicine
DX: Z48.812 Encounter for surgical aftercare following surgery on the circulatory system (principal); I25.10 Atherosclerotic heart disease of native coronary artery without angina pectoris; I50.43 Acute on chronic combined systolic (congestive) and diastolic (congestive) heart failure; J96.21 Acute and chronic respiratory failure with hypoxia
CPT/HCPCS: 36415; 80053; 85025